=== PATIENT | male | born 1960 | race Caucasian/White ===

== ENCOUNTER → 2019-01-19 | Day surgery (SDC) | payer BC ==
[2019-01-16 14:05] VITALS: BMI 37.7
[~2019-01-19] MED LIST: GLYCOPYRROLATE 0.2 MG/ML 2 ML VIAL ONE; LACTATED RINGERS 1,000 ML IV SCH; LIDOCAINE 1% 20 ML VIAL (10MG/ML) FOR IV START INTRADERMA PRN; LIDOCAINE 1% INJ 10MG/ML (20 ML MDV) ONE; PROPOFOL 10 MG/ML 20 ML VIAL IV ONE
[2019-01-19 07:48] VITALS: TEMP 97.8
[2019-01-19 08:03] LABS: Glucose,Whole Blood 106 mg/dL (75-99)
--- NOTE | 2019-01-19 08:38 | P.GSHP ---
History of Present Illness H&P Date: 01/19/19 Chief Complaint: History of colon polyps This a 58-year-old male who presents today for colonoscopy. Patient has a history of colon polyps. Past Medical History Past Medical History: Atrial Fibrillation, Cancer Additional Past Medical History / Comment(s): hx of atrial fib, hx of mantle cell lymphoma, now in remission, last chemo october 2017, tinnitus History of Any Multi-Drug Resistant Organisms: None Reported Past Surgical History: Hernia Repair, Tonsillectomy Past Anesthesia/Blood Transfusion Reactions: No Reported Reaction Additional Past Anesthesia/Blood Transfusion Reaction / Comment(s): No transfusion history. Smoking Status: Never smoker - Past Family History Mother Family Medical History: Myocardial Infarction ([place]) Additional Family Medical History / Comment(s): Has some arrhythmia, unaware of what. Father History Unknown: Yes Medications and Allergies Home Medications Medication Instructions Recorded Confirmed Type metFORMIN HCL [Glucophage Xr] 500 mg PO BID 01/16/19 01/16/19 History Allergies Allergy/AdvReac Type Severity Reaction Status Date / Time shellfish derived [Shellfish] Allergy Nausea & Verified 01/19/19 07:43 Vomiting Surgical - Exam Vital Signs Temp Pulse Resp BP Pulse Ox 97.8 F 86 16 127/76 96 01/19/19 07:46 01/19/19 07:46 01/19/19 07:46 01/19/19 07:46 01/19/19 07:46 - General well developed, well nourished, no distress - Eyes PERRL - ENT normal pinna - Neck no masses - Respiratory normal expansion - Cardiovascular Rhythm: regular - Abdomen Abdomen: soft, non tender Results - Labs Abnormal Lab Results - Last 24 Hours (Table) 01/19/19 Range/Units 07:56 POC Glucose (mg/dL) 106 H (75-99) mg/dL Assessment and Plan Assessment: History of colon polyps. We'll perform colonoscopy.
--- NOTE | 2019-01-19 08:51 | P.OP ---
Date of Procedure: 01/19/19 Preoperative Diagnosis: History of colon polyps Postoperative Diagnosis: Mild diverticulosis Procedure(s) Performed: Colonoscopy Anesthesia: MAC Surgeon: Willie Vilal Pathology: none sent Condition: stable Disposition: PACU Description of Procedure: The patient's placed on the endoscopy table in the lateral position. He received IV sedation. Digital rectal exam was performed which revealed no abnormalities.. The flexible colonoscope was then placed patient anus and passed throughout the entire colon. The ileocecal valve was visualized. The cecum, ascending and transverse colon appeared normal. In the descending; there is mild diverticular changes. Scope was then brought back the rectum and this appeared normal. Scope was withdrawn for patient.
[2019-01-19 08:59] VITALS: PULSE 76; RESP 17
[2019-01-19 09:19] VITALS: BP 107/70
== END | disposition home or self-care (01) ==
LOC: ORWHC2ENDO 07:30
PROVIDERS: ATTEND Surgery
DX: Z12.11 Encounter for screening for malignant neoplasm of colon (principal); K57.30 Diverticulosis of large intestine without perforation or abscess without bleeding; I48.0 Paroxysmal atrial fibrillation; E11.9 Type 2 diabetes mellitus without complications; Z86.010 Personal history of colon polyps; Z85.79 Personal history of other malignant neoplasms of lymphoid, hematopoietic and related tissues; Z92.21 Personal history of antineoplastic chemotherapy; H93.19 Tinnitus, unspecified ear; Z82.49 Family history of ischemic heart disease and other diseases of the circulatory system; Z79.84 Long term (current) use of oral hypoglycemic drugs; Z91.013 Allergy to seafood
CPT/HCPCS: J2001; J2704; G0105; 45378

== ENCOUNTER → 2019-01-29 | Outpatient (CLI) | payer BC ==
--- NOTE | 2019-01-29 21:31 | MR ---
EXAMINATION TYPE: MR knee LT wo con DATE OF EXAM: 01/29/2019 COMPARISON: None HISTORY: Lt knee pain/clicking TECHNIQUE: Multiplanar, multisequence images of the knee is performed without IV contrast. FINDINGS: MEDIAL MENISCUS: Anterior and posterior horns are intact without tear. LATERAL MENISCUS: Anterior and posterior horns are intact without tear. CRUCIATE LIGAMENTS: The anterior and posterior cruciate ligaments are intact and unremarkable. COLLATERAL LIGAMENTS: The medial collateral ligament and lateral collateral ligament complex are inta ct and unremarkable. EXTENSOR MECHANISM: Visualized quadriceps and patellar tendons are intact. There is some increased si gnal near the insertion of the patellar tendon on the inferior patella. Tear however is not suspected straining could be considered. EFFUSION: No significant suprapatellar joint effusion. POPLITEAL CYST: No popliteal/lee cyst. TRICOMPARTMENT SPACES: There is narrowing of the medial compartment joint space. Milder narrowing of the lateral compartment joint space present. Patellofemoral joint space narrowing is present CARTILAGE: There is thinning of the articular cartilage from the patellofemoral joint space along the femur. Mild thinning of the articular cartilage of the distal femur appears to be present in the med ial and lateral compartments. BONE MARROW SIGNAL: No focal abnormal marrow signal is appreciated. OTHER: No additional significant abnormality is appreciated. No lax ligaments are identified. No chhaya picious osseous spurring is evident. The articular cartilage has some mild osteoarthritic degenerativ e change but otherwise appears intact. IMPRESSION: 1. Mild osteoarthritic degenerative change. 2. Some mild focal strain of the patellar tendon at its insertion on the inferior patella could be co nsidered.
== END | disposition home or self-care (01) ==
LOC: RADMRIMAIN 16:10
PROVIDERS: ATTEND Orthopaedic Surgery
DX: M17.12 Unilateral primary osteoarthritis, left knee (principal); S86.812A Strain of other muscle(s) and tendon(s) at lower leg level, left leg, initial encounter

== ENCOUNTER 2019-06-20 09:54 | Emergency (ER) | payer BC ==
[2019-06-20 10:01] VITALS: TEMP 98.1
[2019-06-20 10:42] LABS: HCT 43.5 % (39.0-53.0); MCH 30.8 pg (25.0-35.0); MCHC 34.5 g/dL (31.0-37.0); MCV 89.2 fL (80.0-100.0); Mean Platelet Volume 6.9; RBC 4.87 m/uL (4.30-5.90); RDW 13.8 % (11.5-15.5); WBC 2.7 k/uL (3.8-10.6)
[2019-06-20 10:44] LABS: ALT 25 U/L (4-49); AST 29 U/L (17-59); African American GFR (CKD) >90 (>60 ml/min/1.73 sqM); Albumin 4.6 g/dL (3.5-5.0); Alkaline Phosphatase 48 U/L (38-126); Anion Gap 12 mmol/L; Blood Urea Nitrogen 14 mg/dL (9-20); Calcium 9.3 mg/dL (8.4-10.2); Carbon Dioxide 19 mmol/L (22-30); Chloride 103 mmol/L (98-107); Glucose 208 mg/dL (74-99); Magnesium 1.7 mg/dL (1.6-2.3); Non-African American GFR(CKD) 79 (>60 ml/min/1.73 sqM); Potassium 4.5 mmol/L (3.5-5.1); Sodium 134 mmol/L (137-145); Total Bilirubin 0.7 mg/dL (0.2-1.3); Total Protein 8.4 g/dL (6.3-8.2)
[2019-06-20 10:48] LABS: D-Dimer 0.36 mg/L FEU (<0.60); Partial Thromboplastin Time 23.6 sec (22.0-30.0); Prothrombin Time 10.2 sec (9.0-12.0)
--- NOTE | 2019-06-20 10:57 | ED ---
General Adult HPI - General Chief complaint: Shortness of Breath Stated complaint: chest pain, SOB Time Seen by Provider: 06/20/19 10:09 Source: patient, family, RN notes reviewed Mode of arrival: ambulatory Limitations: no limitations - History of Present Illness Initial comments: This is a 59-year-old male presents emergency Department chief complaint of chest pain or shortness of breath. Patient states that he's had some shortness breath last name days she states that she is improving at this time but states that has not dissipated. Patient states that shortness breath does get worse with exertion at times. He states that he's had no recent URI symptoms no fevers or chills. No productive cough. Patient states he has left sided chest pain associated with a rash. He states there is a rash on his front and back in the left side. He states it's a burning type pain. Patient denies any abdominal pain, leg swelling, leg pain. Patient has no history of PE or DVT. Patient denies any recent traveling. Patient does have a history of non- Hodgkin's lymphoma in remission. Patient states he does have history of diabetes on metformin currently. Patient does state that he was told he had A. fib at one point though this was just prior to his diagnosis of non-Hodgkin's lymphoma. 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 - Related Data Home Medications Medication Instructions Recorded Confirmed Aspirin EC [Ecotrin Low Dose] 81 mg PO DAILY 06/20/19 06/20/19 Multivitamins, Thera [Multivitamin 1 tab PO DAILY 06/20/19 06/20/19 (formulary)] metFORMIN HCL [Glucophage] 500 mg PO BID 06/20/19 06/20/19 Previous Rx's Medication Instructions Recorded valACYclovir HCL [Valtrex] 1,000 mg PO Q8HR #30 tab 06/20/19 Allergies Allergy/AdvReac Type Severity Reaction Status Date / Time shellfish derived [Shellfish] Allergy Anaphylaxis Verified 06/20/19 11:04 Review of Systems ROS Statement: Those systems with pertinent positive or pertinent negative responses have been documented in the HPI. ROS Other: All systems not noted in ROS Statement are negative. Past Medical History Past Medical History: Cancer Additional Past Medical History / Comment(s): hx of atrial fib, hx of mantle cell lymphoma, now in remission, last chemo october 2017, tinnitus History of Any Multi-Drug Resistant Organisms: None Reported Past Surgical History: Hernia Repair, Tonsillectomy Past Anesthesia/Blood Transfusion Reactions: No Reported Reaction Additional Past Anesthesia/Blood Transfusion Reaction / Comment(s): No transfusion history. Past Psychological History: No Psychological Hx Reported Smoking Status: Current every day smoker Past Alcohol Use History: Rare Past Drug Use History: None Reported - Past Family History Mother Family Medical History: Myocardial Infarction ([place]) Additional Family Medical History / Comment(s): Has some arrhythmia, unaware of what. Father History Unknown: Yes General Exam Limitations: no limitations General appearance: alert, in no apparent distress Head exam: Present: atraumatic, normocephalic, normal inspection Eye exam: Present: normal appearance, PERRL, EOMI. Absent: scleral icterus, conjunctival injection, periorbital swelling ENT exam: Present: normal exam, normal oropharynx, mucous membranes moist Neck exam: Present: normal inspection, full ROM. Absent: tenderness, meningismus, lymphadenopathy Respiratory exam: Present: normal lung sounds bilaterally, chest wall tenderness (Tenderness on the left anterior posterior chest wall there is notable rash is erythematous with vesicles). Absent: respiratory distress, wheezes, rales, rhonchi, stridor, accessory muscle use Cardiovascular Exam: Present: normal rhythm, tachycardia, normal heart sounds. Absent: systolic murmur, diastolic murmur, rubs, gallop, clicks GI/Abdominal exam: Present: soft, normal bowel sounds. Absent: distended, tenderness, guarding, rebound, rigid Course Vital Signs 06/20/19 06/20/19 09:56 11:15 Temperature 98.1 F Pulse Rate 116 H 112 H Respiratory 20 20 Rate Blood Pressure 148/90 O2 Sat by Pulse 97 95 Oximetry EKG Findings - EKG Comments: EKG Findings:: EKG performed at 10:13 sinus tachycardia rate of 1:15 [place] 156 QRS 92 QT/QTC 3:30/456 left axis deviation Medical Decision Making - Medical Decision Making This a 59-year-old male present emergency from for chest pain shortness of b reath. His shortness breath was improving up until today where it seemed to not be improving. Patient reportedly this time does not show an acute abnormality in his chest x-ray he does have some mild acidosis and pharmacy pain in which patient states is chronic. He states from his cancer. Patient is concerned about possible Covid. Patient lab testing. I did recommend patient be admitted for ACS rule out, further evaluation by pulmonology and cardiology patient declines states he understands that there is risk associated with going home at this time. Patient will have Covid testing and discharge. Patient has shingles in which he will be treated with Valtrex at this time. - Lab Data Result diagrams: 06/20/19 10:20 06/20/19 10:20 Lab Results 06/20/19 06/20/19 06/20/19 Range/Units 10:20 10:20 10:20 WBC 2.7 L (3.8-10.6) k/uL RBC 4.87 (4.30-5.90) m/uL Hgb 15.0 (13.0-17.5) gm/dL Hct 43.5 (39.0-53.0) % MCV 89.2 (80.0-100.0) fL MCH 30.8 (25.0-35.0) pg MCHC 34.5 (31.0-37.0) g/dL RDW 13.8 (11.5-15.5) % Plt Count 85 L (150-450) k/uL Neutrophils % (Manual) 57 % Band Neutrophils % 1 % Lymphocytes % (Manual) 25 % Monocytes % (Manual) 17 % Basophils % (Manual) 1 % Metamyelocytes % 1 % Neutrophils # (Manual) 1.50 (1.3-7.7) k/uL Lymphocytes # (Manual) 0.68 L (1.0-4.8) k/uL Monocytes # (Manual) 0.46 (0-1.0) k/uL Basophils # (Manual) 0.03 (0-0.2) k/uL Metamyelocytes # (Man) 0.03 H (0) k/uL Nucleated RBCs 0 (0-0) /100 WBC Manual Slide Review Performed PT 10.2 (9.0-12.0) sec INR 1.0 (<1.2) APTT 23.6 (22.0-30.0) sec D-Dimer 0.36 (<0.60) mg/L FEU Sodium 134 L (137-145) mmol/L Potassium 4.5 (3.5-5.1) mmol/L Chloride 103 (98-107) mmol/L Carbon Dioxide 19 L (22-30) mmol/L Anion Gap 12 mmol/L BUN 14 (9-20) mg/dL Creatinine 1.04 (0.66-1.25) mg/dL Est GFR (CKD-EPI)AfAm >90 (>60 ml/min/1.73 sqM) Est GFR (CKD-EPI)NonAf 79 (>60 ml/min/1.73 sqM) Glucose 208 H (74-99) mg/dL Plasma Lactic Acid Chente (0.7-2.0) mmol/L Calcium 9.3 (8.4-10.2) mg/dL Magnesium 1.7 (1.6-2.3) mg/dL Total Bilirubin 0.7 (0.2-1.3) mg/dL AST 29 (17-59) U/L ALT 25 (4-49) U/L Alkaline Phosphatase 48 (38-126) U/L Troponin I (0.000-0.034) ng/mL NT-Pro-B Natriuret Pep pg/mL Total Protein 8.4 H (6.3-8.2) g/dL Albumin 4.6 (3.5-5.0) g/dL 06/20/19 06/20/19 06/20/19 Range/Units 10:20 10:20 10:20 WBC (3.8-10.6) k/uL RBC (4.30-5.90) m/uL Hgb (13.0-17.5) gm/dL Hct (39.0-53.0) % MCV (80.0-100.0) fL MCH (25.0-35.0) pg MCHC (31.0-37.0) g/dL RDW (11.5-15.5) % Plt Count (150-450) k/uL Neutrophils % (Manual) % Band Neutrophils % % Lymphocytes % (Manual) % Monocytes % (Manual) % Basophils % (Manual) % Metamyelocytes % % Neutrophils # (Manual) (1.3-7.7) k/uL Lymphocytes # (Manual) (1.0-4.8) k/uL Monocytes # (Manual) (0-1.0) k/uL Basophils # (Manual) (0-0.2) k/uL Metamyelocytes # (Man) (0) k/uL Nucleated RBCs (0-0) /100 WBC Manual Slide Review PT (9.0-12.0) sec INR (<1.2) APTT (22.0-30.0) sec D-Dimer (<0.60) mg/L FEU Sodium (137-145) mmol/L Potassium (3.5-5.1) mmol/L Chloride (98-107) mmol/L Carbon Dioxide (22-30) mmol/L Anion Gap mmol/L BUN (9-20) mg/dL Creatinine (0.66-1.25) mg/dL Est GFR (CKD-EPI)AfAm (>60 ml/min/1.73 sqM) Est GFR (CKD-EPI)NonAf (>60 ml/min/1.73 sqM) Glucose (74-99) mg/dL Plasma Lactic Acid Chente 2.1 H* (0.7-2.0) mmol/L Calcium (8.4-10.2) mg/dL Magnesium (1.6-2.3) mg/dL Total Bilirubin (0.2-1.3) mg/dL AST (17-59) U/L ALT (4-49) U/L Alkaline Phosphatase (38-126) U/L Troponin I <0.012 (0.000-0.034) ng/mL NT-Pro-B Natriuret Pep 36 pg/mL Total Protein (6.3-8.2) g/dL Albumin (3.5-5.0) g/dL Disposition Clinical Impression: Exertional dyspnea, Shingles Disposition: HOME SELF-CARE Condition: Stable Instructions (If sedation given, give patient instructions): Shingles (ED) Additional Instructions: Please return to the Emergency Department if symptoms worsen or any other concerns. Prescriptions: valACYclovir HCL [Valtrex] 1,000 mg PO Q8HR #30 tab Is patient prescribed a controlled substance at d/c from ED?: No Referrals: Pablo Chester DO [Primary Care Provider] - 1-2 days Niranjan Andrews DO [Doctor of Osteopathic Medicine] - 1-2 days Jatin Flores MD [STAFF PHYSICIAN] - 1-2 days Time of Disposition: 11:38
--- NOTE | 2019-06-20 10:59 | XR ---
EXAMINATION TYPE: XR chest 2V DATE OF EXAM: 06/20/2019 COMPARISON: 02/24/2015 INDICATION: Difficulty breathing cough short of breath history of lymphoma TECHNIQUE: Frontal and lateral views of the chest are obtained. FINDINGS: The heart size is normal. The pulmonary vasculature is normal. No suspicious consolidations are evident. Port is present on the left with the tip in the superior ve na cava region. No pneumothorax is evident. Aortopulmonic window appears normal. Spondylosis within t he thoracic spine. IMPRESSION: 1. No acute pulmonary process. 2. Placement of a port on the left with the tip in the superior vena cava region. No pneumothorax is evident.
[2019-06-20 11:09] LABS: Metamyelocytes # (M) 0.03 k/uL (0); Metamyelocytes % 1 %; Nucleated Red Blood Cells 0 /100 WBC (0-0)
[2019-06-20 11:11] LABS: Band Neutrophils % 1 %; Basophils # (M) 0.03 k/uL (0-0.2); Lymphocytes # (M) 0.68 k/uL (1.0-4.8); Monocytes # (M) 0.46 k/uL (0-1.0); Neutrophils % (M) 57 %; Platelet Count 85 k/uL (150-450); Total Cells Counted 200
[2019-06-20 11:55] VITALS: BP 125/69; PULSE 110; RESP 18
== END 2019-06-20 12:11 | disposition home or self-care (01) ==
LOC: EC 09:54
DX: R06.09 Other forms of dyspnea (principal); B02.9 Zoster without complications; E87.2 Acidosis; R07.9 Chest pain, unspecified; F17.200 Nicotine dependence, unspecified, uncomplicated; Z85.72 Personal history of non-Hodgkin lymphomas; Z92.21 Personal history of antineoplastic chemotherapy; Z86.79 Personal history of other diseases of the circulatory system; Z79.82 Long term (current) use of aspirin; Z79.84 Long term (current) use of oral hypoglycemic drugs; Z91.013 Allergy to seafood; Z82.49 Family history of ischemic heart disease and other diseases of the circulatory system
CPT/HCPCS: 36415; 71046; 80053; 83605; 83735; 83880; 84484; 85025; 85379; 85610; 85730; 87635; 93005; 99285

== ENCOUNTER → 2020-01-22 | Outpatient (CLI) | payer BC | END | disposition home or self-care (01) | LOC: LABWHC1 12:06 | PROVIDERS: ATTEND Family Medicine | DX: Z20.828 Contact with and (suspected) exposure to other viral communicable diseases (principal) | CPT/HCPCS: U0003; C9803 ==

== ENCOUNTER 2020-01-27 12:39 | Inpatient (IN) | payer BC ==
[2020-01-27] MEDS ORDERED: dexAMETHasone 2 MG TAB PO STA (13:08)
--- NOTE | 2020-01-27 13:21 | ED ---
General Adult HPI - General Chief complaint: Shortness of Breath Stated complaint: SOB Time Seen by Provider: 01/27/20 12:45 Source: patient, RN notes reviewed, old records reviewed Mode of arrival: wheelchair Limitations: no limitations - History of Present Illness Initial comments: This is a 59-year-old male who presents emergency Department complaining of feeling a little short of breath. Patient states he went to see his primary medical care doctor started on antibiotics and steroids. Patient states shortness of breath is gotten worse so he decided come the emergency department. Patient states she was COVID tested but did not get results however while he was in the room I looked up his results and he was positive. Patient denies any fever. Patient denies chest pain or palpitations. Patient denies any diarrhea or or vomiting. Patient denies any headache patient denies any numbness or weakness. - Related Data Home Medications Medication Instructions Recorded Confirmed Aspirin EC [Ecotrin Low Dose] 81 mg PO DAILY 06/20/19 06/20/19 Multivitamins, Thera [Multivitamin 1 tab PO DAILY 06/20/19 06/20/19 (formulary)] metFORMIN HCL [Glucophage] 500 mg PO BID 06/20/19 06/20/19 Previous Rx's Medication Instructions Recorded valACYclovir HCL [Valtrex] 1,000 mg PO Q8HR #30 tab 06/20/19 Allergies Allergy/AdvReac Type Severity Reaction Status Date / Time shellfish derived [Shellfish] Allergy Anaphylaxis Verified 01/27/20 12:45 Review of Systems ROS Statement: Those systems with pertinent positive or pertinent negative responses have been documented in the HPI. ROS Other: All systems not noted in ROS Statement are negative. Past Medical History Past Medical History: Cancer Additional Past Medical History / Comment(s): hx of atrial fib, hx of mantle cell lymphoma, now in remission, tinnitus History of Any Multi-Drug Resistant Organisms: None Reported Past Surgical History: Hernia Repair, Tonsillectomy Past Anesthesia/Blood Transfusion Reactions: No Reported Reaction Additional Past Anesthesia/Blood Transfusion Reaction / Comment(s): No transfusion history. Past Psychological History: No Psychological Hx Reported Past Alcohol Use History: Rare Past Drug Use History: None Reported - Past Family History Mother Family Medical History: Myocardial Infarction ([place]) Additional Family Medical History / Comment(s): Has some arrhythmia, unaware of what. Father History Unknown: Yes General Exam - General Exam Comments Initial Comments: GENERAL: Patient is well-developed and well-nourished. Patient is nontoxic and well-hydrated and is in mild distress. ENT: Neck is soft and supple. No significant lymphadenopathy is noted. Oropharynx is clear. Moist mucous membranes. Neck has full range of motion without eliciting any pain. EYES: The sclera were anicteric and conjunctiva were pink and moist. Extraocular movements were intact and pupils were equal round and reactive to light. Eyelids were unremarkable. PULMONARY: Unlabored respirations. Good breath sounds bilaterally. No audible rales rhonchi or wheezing was noted. CARDIOVASCULAR: There is a regular rate and rhythm without any murmurs gallops or rubs. ABDOMEN: Soft and nontender with normal bowel sounds. SKIN: Skin is clear with no lesions or rashes and otherwise unremarkable. NEUROLOGIC: Patient is alert and oriented x3. Cranial nerves II through XII are grossly intact. Motor and sensory are also intact. Normal speech, volume and content. Symmetrical smile. MUSCULOSKELETAL: Normal extremities with adequate strength and full range of motion. LYMPHATICS: No significant lymphadenopathy is noted PSYCHIATRIC: Normal psychiatric evaluation. Limitations: no limitations Course Vital Signs 01/27/20 12:43 Temperature 98.5 F Pulse Rate 95 Respiratory 18 Rate Blood Pressure 107/70 O2 Sat by Pulse 92 L Oximetry Medical Decision Making - Medical Decision Making EKG shows normal sinus rhythm at 80 bpm TX interval is 138 QRS is 90 QT interval 380 QTC is 459. EKG shows no ST segment elevation or depression. X-ray shows bilateral pneumonia consistent with COVID. I spoke with Dr. Cano he agreed to admit the patient admitted the patient I consult pulmonary in the wrote admitting orders. - Lab Data Result diagrams: 01/27/20 13:21 01/27/20 13:21 Lab Results 01/27/20 01/27/20 01/27/20 Range/Units 13:21 13:21 13:21 WBC 3.9 (3.8-10.6) k/uL RBC 4.64 (4.30-5.90) m/uL Hgb 14.4 (13.0-17.5) gm/dL Hct 40.6 (39.0-53.0) % MCV 87.5 (80.0-100.0) fL MCH 30.9 (25.0-35.0) pg MCHC 35.3 (31.0-37.0) g/dL RDW 13.4 (11.5-15.5) % Plt Count 143 L (150-450) k/uL MPV 6.8 Neutrophils % 85 % Lymphocytes % 7 % Monocytes % 6 % Eosinophils % 1 % Basophils % 1 % Neutrophils # 3.3 (1.3-7.7) k/uL Lymphocytes # 0.3 L (1.0-4.8) k/uL Monocytes # 0.2 (0-1.0) k/uL Eosinophils # 0.0 (0-0.7) k/uL Basophils # 0.0 (0-0.2) k/uL PT 10.6 (9.0-12.0) sec INR 1.0 (<1.2) APTT 24.1 (22.0-30.0) sec D-Dimer 0.46 (<0.60) mg/L FEU Sodium 133 L (137-145) mmol/L Potassium 4.4 (3.5-5.1) mmol/L Chloride 102 (98-107) mmol/L Carbon Dioxide 22 (22-30) mmol/L Anion Gap 9 mmol/L BUN 15 (9-20) mg/dL Creatinine 0.81 (0.66-1.25) mg/dL Est GFR (CKD-EPI)AfAm >90 (>60 ml/min/1.73 sqM) Est GFR (CKD-EPI)NonAf >90 (>60 ml/min/1.73 sqM) Glucose 111 H (74-99) mg/dL Plasma Lactic Acid Chente (0.7-2.0) mmol/L Calcium 9.0 (8.4-10.2) mg/dL Magnesium 1.9 (1.6-2.3) mg/dL Total Bilirubin 0.9 (0.2-1.3) mg/dL AST 44 (17-59) U/L ALT 36 (4-49) U/L Alkaline Phosphatase 57 (38-126) U/L Lactate Dehydrogenase 919 H (313-618) U/L C-Reactive Protein 76.5 H (<10.0) mg/L Total Protein 7.8 (6.3-8.2) g/dL Albumin 3.5 (3.5-5.0) g/dL Influenza Type A RNA (Not Detectd) Influenza Type B (PCR) (Not Detectd) 01/27/20 01/27/20 Range/Units 13:21 13:21 WBC (3.8-10.6) k/uL RBC (4.30-5.90) m/uL Hgb (13.0-17.5) gm/dL Hct (39.0-53.0) % MCV (80.0-100.0) fL MCH (25.0-35.0) pg MCHC (31.0-37.0) g/dL RDW (11.5-15.5) % Plt Count (150-450) k/uL MPV Neutrophils % % Lymphocytes % % Monocytes % % Eosinophils % % Basophils % % Neutrophils # (1.3-7.7) k/uL Lymphocytes # (1.0-4.8) k/uL Monocytes # (0-1.0) k/uL Eosinophils # (0-0.7) k/uL Basophils # (0-0.2) k/uL PT (9.0-12.0) sec INR (<1.2) APTT (22.0-30.0) sec D-Dimer (<0.60) mg/L FEU Sodium (137-145) mmol/L Potassium (3.5-5.1) mmol/L Chloride (98-107) mmol/L Carbon Dioxide (22-30) mmol/L Anion Gap mmol/L BUN (9-20) mg/dL Creatinine (0.66-1.25) mg/dL Est GFR (CKD-EPI)AfAm (>60 ml/min/1.73 sqM) Est GFR (CKD-EPI)NonAf (>60 ml/min/1.73 sqM) Glucose (74-99) mg/dL Plasma Lactic Acid Chente 1.5 (0.7-2.0) mmol/L Calcium (8.4-10.2) mg/dL Magnesium (1.6-2.3) mg/dL Total Bilirubin (0.2-1.3) mg/dL AST (17-59) U/L ALT (4-49) U/L Alkaline Phosphatase (38-126) U/L Lactate Dehydrogenase (313-618) U/L C-Reactive Protein (<10.0) mg/L Total Protein (6.3-8.2) g/dL Albumin (3.5-5.0) g/dL Influenza Type A RNA Not Detected (Not Detectd) Influenza Type B (PCR) Not Detected (Not Detectd) Disposition Clinical Impression: Pneumonia due to COVID-19 virus Disposition: ADMITTED IP TO THIS HOSP Referrals: Pablo Chester DO [Primary Care Provider] - 1-2 days Time of Disposition: 14:38
[2020-01-27 13:31] LABS: Basophils % (A) 1 %; Eosinophils % (A) 1 %; HCT 40.6 % (39.0-53.0); HGB 14.4 gm/dL (13.0-17.5); Lymphocytes # (A) 0.3 k/uL (1.0-4.8); Lymphocytes % (A) 7 %; MCH 30.9 pg (25.0-35.0); MCHC 35.3 g/dL (31.0-37.0); MCV 87.5 fL (80.0-100.0); Mean Platelet Volume 6.8; Monocytes # (A) 0.2 k/uL (0-1.0); Monocytes % (A) 6 %; Neutrophils # (A) 3.3 k/uL (1.3-7.7); Neutrophils % (A) 85 %; Platelet Count 143 k/uL (150-450); RBC 4.64 m/uL (4.30-5.90); RDW 13.4 % (11.5-15.5); WBC 3.9 k/uL (3.8-10.6)
[2020-01-27 13:44] LABS: ALT 36 U/L (4-49); AST 44 U/L (17-59); African American GFR (CKD) >90 (>60 ml/min/1.73 sqM); Albumin 3.5 g/dL (3.5-5.0); Alkaline Phosphatase 57 U/L (38-126); Anion Gap 9 mmol/L; Blood Urea Nitrogen 15 mg/dL (9-20); C Reactive Protein 76.5 mg/L (<10.0); Carbon Dioxide 22 mmol/L (22-30); Chloride 102 mmol/L (98-107); Glucose 111 mg/dL (74-99); LDH 919 U/L (313-618); Magnesium 1.9 mg/dL (1.6-2.3); Non-African American GFR(CKD) >90 (>60 ml/min/1.73 sqM); Potassium 4.4 mmol/L (3.5-5.1); Sodium 133 mmol/L (137-145); Total Bilirubin 0.9 mg/dL (0.2-1.3); Total Protein 7.8 g/dL (6.3-8.2)
[2020-01-27 13:49] LABS: D-Dimer 0.46 mg/L FEU (<0.60); Partial Thromboplastin Time 24.1 sec (22.0-30.0); Prothrombin Time 10.6 sec (9.0-12.0)
--- NOTE | 2020-01-27 13:56 | XR ---
EXAMINATION TYPE: XR chest 1V portable DATE OF EXAM: 01/27/2020 COMPARISON: 06/20/2019. HISTORY: Shortness of breath. TECHNIQUE: Single frontal view of the chest is obtained. FINDINGS: There is moderate perihilar and bibasilar patchy opacities. No pleural effusion, or pneumo thorax seen. Left IJ port catheter is seen. The cardiac silhouette size is within normal limits. Th e osseous structures are intact. IMPRESSION: Bilateral infiltrates.
--- NOTE | 2020-01-27 18:17 | P.CNPUL ---
History of Present Illness Consult date: 01/27/20 Reason for consult: dyspnea, pneumonia History of present illness: This is a 59-year-old male patient was currently being hospitalized for shortn ess of breath and suspected pneumonia.. The patient has history of mental cell lymphoma. The patient has an out of town oncologist. He has been taken treatment with Rituxan and Revlimid as the patient has had recurrent disease. The patient came into the emergency department having difficulty breathing. He was tested for coronavirus COVID 19 infection on 01/22/2020 and he checked positive.. The patient came in to the hospital because of worsening symptoms of shortness of breath and cough. Denied having any headache. No nausea. No vomiting. No diarrhea. In the ED, the patient was afebrile. He was on 2 L of oxygen by nasal cannula with a pulse of 95%. The rest of the hemodynamic pa rameters were all stable. He had a white cell count of 3.9 with hemoglobin of 14.3. Platelet count was low at 143 and the patient and lymphopenia with a lymphocyte count of 0.3. Correlation profile was within normal. D-dimer was normal at 0.46. His LDH was 919, CRP was 76, sodium was 133, potassium was 4.4, influenza screen for influenza A and B were both negative. Bilateral pulmonary infiltrates mainly perihilar. No effusion. He doesn't report regarding his underlying malignancy Review of Systems Constitutional: Reports fatigue Eyes: denies as per HPI, denies blurred vision, denies bulging eye, denies decreased vision, denies diplopia, denies discharge, denies dry eye, denies irritation, denies itching, denies pain, denies photophobia, denies loss of peripheral vision, denies loss of vision, denies tunnel vision/blind spots Ears: deny: decreased hearing, ear discharge, earache, tinnitus Ears, nose, mouth and throat: Reports as per HPI Breasts: absent: as per HPI, gynecomastia Cardiovascular: Reports as per HPI, Reports dyspnea on exertion Respiratory: Reports cough, Reports dyspnea Gastrointestinal: Reports as per HPI Genitourinary: Reports as per HPI Musculoskeletal: Reports as per HPI Musculoskeletal: absent: ankle pain, ankle stiffness, ankle swelling Integumentary: Reports as per HPI Neurological: Reports as per HPI Psychiatric: Reports as per HPI Endocrine: Reports as per HPI Hematologic/Lymphatic: Reports as per HPI Allergic/Immunologic: Reports as per HPI Past Medical History Past Medical History: Cancer Additional Past Medical History / Comment(s): hx of atrial fib, hx of mantle cell lymphoma, and currently patient is currently on Revlimid, tinnitus History of Any Multi-Drug Resistant Organisms: None Reported Past Surgical History: Hernia Repair, Tonsillectomy Past Anesthesia/Blood Transfusion Reactions: No Reported Reaction Additional Past Anesthesia/Blood Transfusion Reaction / Comment(s): No transfusion history. Past Psychological History: No Psychological Hx Reported Past Alcohol Use History: Rare Past Drug Use History: None Reported - Past Family History Mother Family Medical History: Myocardial Infarction ([place]) Additional Family Medical History / Comment(s): Has some arrhythmia, unaware of what. Father History Unknown: Yes Medications and Allergies Home Medications Medication Instructions Recorded Confirmed Type metFORMIN HCL [Glucophage] 500 mg PO BID 06/20/19 01/27/20 History Acyclovir 400 mg PO BID 01/27/20 01/27/20 History Lenalidomide [Revlimid] 25 mg PO DIRECTED 01/27/20 01/27/20 History Tamsulosin [Flomax] 0.4 mg PO DAILY 01/27/20 01/27/20 History predniSONE See Taper PO DAILY 01/27/20 01/27/20 History Allergies Allergy/AdvReac Type Severity Reaction Status Date / Time shellfish derived [Shellfish] Allergy Anaphylaxis Verified 01/27/20 15:26 Physical Exam Vitals: Vital Signs Temp Pulse Resp BP Pulse Ox 01/27/20 16:00 75 20 115/75 95 01/27/20 15:45 74 20 127/79 95 01/27/20 14:45 79 20 122/80 95 01/27/20 13:45 74 20 124/82 95 01/27/20 12:43 98.5 F 95 18 107/70 92 L Intake and Output 01/27/20 01/27/20 01/27/20 06:59 14:59 22:59 Other: Weight 115.666 kg The patient appeared well nourished and normally developed. Vital signs as documented. Head exam is unremarkable. No scleral icterus or corneal arcus noted. Neck is without jugular venous distension, thyromegaly, or carotid bruits. Carotid upstrokes are brisk bilaterally. Lungs are clear to auscultation and percussion. Cardiac exam reveals the PMI to be normally sized and situated. Rhythm is regular. First and second heart sounds normal. No murmurs, rubs or gallops. Abdominal exam reveals normal bowel sounds, no masses, no organomegaly and no aortic enlargement. Extremities are nonedematous and both femoral and pedal pulses are normal.Examination of the skin revealed no evidence of significant rashes, suspicious appearing nevi or other concerning lesions. The patient has a MediPort over the left anterior chest area and exit site is dry clean and intact.Neurologically, the patient is awake and alert and the patient does not have any focal neurological deficit. Cranial nerves are essentially intact. Results - Laboratory Findings CBC and BMP: 01/27/20 13:21 01/27/20 13:21 PT/INR, D-dimer PT 10.6 sec (9.0-12.0) 01/27/20 13:21 INR 1.0 (<1.2) 01/27/20 13:21 D-Dimer 0.46 mg/L FEU (<0.60) 01/27/20 13:21 Abnormal lab findings: Abnormal Labs 01/27/20 01/27/20 13:21 13:21 Plt Count 143 L Lymphocytes # 0.3 L Sodium 133 L Glucose 111 H Lactate Dehydrogenase 919 H C-Reactive Protein 76.5 H - Diagnostic Findings Chest x-ray: image reviewed Assessment and Plan Plan: 1 acute Covid 19 infection with secondary constitutional symptoms and shortness of breath with early signs of pneumonia with limited perihilar bilateral infiltrates 2 shortness of breath secondary to above 3 acute hypoxic respiratory failure secondary to above currently on 2 L about 2 by nasal cannula 4 history of lymphoma currently undergoing treatment with Revlimid 5 history of paroxysmal atrial fibrillation 6 BPH maintained on Flomax Plan Admit this patient to the hospital for monitoring monitor the oxygenation put the patient on oral Decadron 6 mg by mouth daily Initiate Remdesivir , as the patient reports progressive worsening shortness of breath and he has developed some degree of hypoxemia along with bilateral pulmonary infiltrates consistent with Covid 19 related pneumonia. IV hydration Lovenox for prophylaxis We'll continue to follow
[2020-01-27] MEDS: ENOXAPARIN 40 MG/0.4 ML SYRINGE SQ SCH (18:33)
[2020-01-27] MEDS: ASCORBIC ACID 500 MG TAB PO SCH (18:33)
[2020-01-27] MEDS: CHOLECALCIFEROL 1,000 UNIT TAB PO SCH (18:33)
[2020-01-27] MEDS: ZINC SULFATE 220 MG CAP PO SCH (18:53)
[2020-01-27] MEDS ORDERED: REMDESIVIR (EUA) 200 MG in SODIUM CHLORIDE 0.9% 250 ML IVPB ONE (19:30)
[2020-01-27] MEDS: MELATONIN 5 MG TABLET PO SCH (20:25)
[2020-01-27] MEDS: FAMOTIDINE 20 MG TAB PO SCH (20:32)
--- NOTE | 2020-01-27 20:42 | P.HPIM ---
History of Present Illness H&P Date: 01/27/20 Patient is a 59-year-old male with a known history of mantle cell lymphoma currently in remission and on follow-up with his oncologist presents to ER with complaints of shortness of breath, cough without sputum production generalized weakness and myalgias which has been worsening since last Tuesday. Patient was tested for COVID-19 couple days ago but did not get his report yet. Patient presents to ER due to worsening symptoms. Denied any loss of taste. No nausea vomiting or diarrhea. On admission patient was saturating at 92% on room air and was afebrile. Chest x-ray showed bilateral infiltrates. EKG showed normal sinus rhythm. Laboratory data showed WBC 3.9, hemoglobin 14.4, D-dimer is not elevated 0.46 LDH is 919 and CRP seven 6.5 and influenza PCR negative. Review of Systems Constitutional: patient does have subjective fevers, generalized weakness and fatigue. And myalgias.. Abdomen: Patient denied nausea vomiting and diarrhea and abdominal pain. Cardiovascular: Patient denies any chest pain .no palpitations. Respiratory: Patient does have cough without sputum production and shortness of breath.h Neurologic: Patient denied any numbness or tingling headache. Musculoskeletal: Patient denies any complaints of joint swelling or deformity. Skin: Negative Psychiatric: Negative Endocrine: No heat or cold intolerance. No recent weight gain. Genitourinary: No dysuria or hematuria. All other 14 point ROS negative except the above Past Medical History Past Medical History: Cancer Additional Past Medical History / Comment(s): hx of atrial fib, hx of mantle cell lymphoma, now in remission, tinnitus History of Any Multi-Drug Resistant Organisms: None Reported Past Surgical History: Hernia Repair, Tonsillectomy Past Anesthesia/Blood Transfusion Reactions: No Reported Reaction Additional Past Anesthesia/Blood Transfusion Reaction / Comment(s): No transfu breana history. Past Psychological History: No Psychological Hx Reported Past Alcohol Use History: Rare Past Drug Use History: None Reported - Past Family History Mother Family Medical History: Myocardial Infarction ([place]) Additional Family Medical History / Comment(s): Has some arrhythmia, unaware of what. Father History Unknown: Yes Medications and Allergies Home Medications Medication Instructions Recorded Confirmed Type metFORMIN HCL [Glucophage] 500 mg PO BID 06/20/19 01/27/20 History Acyclovir 400 mg PO BID 01/27/20 01/27/20 History Lenalidomide [Revlimid] 25 mg PO DIRECTED 01/27/20 01/27/20 History Tamsulosin [Flomax] 0.4 mg PO DAILY 01/27/20 01/27/20 History predniSONE See Taper PO DAILY 01/27/20 01/27/20 History Allergies Allergy/AdvReac Type Severity Reaction Status Date / Time shellfish derived [Shellfish] Allergy Anaphylaxis Verified 01/27/20 15:26 Physical Exam Vitals: Vital Signs Temp Pulse Resp BP Pulse Ox 01/27/20 16:00 75 20 115/75 95 01/27/20 15:45 74 20 127/79 95 01/27/20 14:45 79 20 122/80 95 01/27/20 13:45 74 20 124/82 95 01/27/20 12:43 98.5 F 95 18 107/70 92 L Intake and Output 01/27/20 01/27/20 01/27/20 06:59 14:59 22:59 Other: Weight 115.666 kg PHYSICAL EXAMINATION: Patient is lying in the bed comfortably, no acute distress, awake alert and oriented.. HEENT: Normocephalic. Neck is supple. Pupils reactive. Nostrils clear. Oral cavity is moist. Ears reveal no drainage. Neck reveals no JVD, carotid bruits, or thyromegaly. CHEST EXAMINATION: Trachea is central. Symmetrical expansion. Lung culp clear to auscultation and percussion. CARDIAC: Normal S1, S2 with no gallops. No murmurs ABDOMEN: Soft. Bowel sounds normal. No organomegaly. No abdominal bruits. Extremities: reveal no edema. No clubbing or cyanosis Neurologically awake, alert, oriented x3 with well-coordinated movements. No focal deficits noted Skin: No rash or skin lesions. Psychiatric: Coperative. Nonsuicidal Musculoskeletal: No joint swelling or deformity. Normal range of motion. Results CBC & Chem 7: 01/27/20 13:21 01/27/20 13:21 Labs: Abnormal Lab Results - Last 24 Hours (Table) 01/27/20 01/27/20 Range/Units 13:21 13:21 Plt Count 143 L (150-450) k/uL Lymphocytes # 0.3 L (1.0-4.8) k/uL Sodium 133 L (137-145) mmol/L Glucose 111 H (74-99) mg/dL Lactate Dehydrogenase 919 H (313-618) U/L C-Reactive Protein 76.5 H (<10.0) mg/L Thrombosis Risk Factor Assmnt - DVT/VTE Prophylaxis DVT/VTE Prophylaxis: Pharmacologic Prophylaxis ordered Assessment and Plan Assessment: Acute COVID-19 infection with bilateral pneumonia. Acute hypoxic respiratory failure secondary to COVID-19 infection Mantle cell lymphoma currently in remission. On follow-up with his oncologist. History of atrial fibrillation Diabetes type 2 [id number] History of tinnitus DVT prophylaxis and GI prophylaxis Plan: Patient will continue gentle IV hydration. Continue with oxygen therapy and will start on dexamethasone and Lovenox. Pulmonary was consulted. Patient will benefit from remdesivir therapy. Continue to monitor closely and contact and droplet precautions. Further recommendations based on the clinical course.w Time with Patient: Greater than 30
[2020-01-27 21:37] LABS: Glucose,Whole Blood 117 mg/dL (75-99)
[2020-01-27 23:04] LABS: Ferritin 299.7 ng/mL (22.0-322.0)
[2020-01-28 07:33] LABS: Glucose,Whole Blood 89 mg/dL (75-99)
[2020-01-28] MEDS: ASCORBIC ACID 500 MG TAB PO SCH (08:31)
[2020-01-28] MEDS: FAMOTIDINE 20 MG TAB PO SCH ×2 (08:32→20:43)
[2020-01-28] MEDS: ZINC SULFATE 220 MG CAP PO SCH (08:32)
[2020-01-28] MEDS: CHOLECALCIFEROL 1,000 UNIT TAB PO SCH (08:32)
[2020-01-28] MEDS: dexAMETHasone 2 MG TAB PO SCH (08:32)
--- NOTE | 2020-01-28 10:53 | P.PN ---
Subjective Progress Note Date: 01/28/20 This is a 59-year-old gentleman admitted with acute COVID-19 pneumonia, acute hypoxic respiratory failure multiple other medical issues. Maintained on Decadron, Remdisiv, IV fluid hydration, Lovenox. Oxygen requirements worsened, up to 4 L nasal cannula required to maintain O2 sats in the high 90s. Dry nonproductive cough. Denies chest pain, palpitations. Afebrile. Blood sugars controlled. Objective - Vital Signs Vital signs: Vital Signs Temp 98.2 F 01/28/20 06:34 Pulse 83 01/28/20 06:34 Resp 20 01/28/20 06:34 BP 113/71 01/28/20 06:34 Pulse Ox 91 L 01/28/20 06:34 Intake & Output 01/27/20 01/28/20 01/28/20 18:59 06:59 18:59 Intake Total 250 Balance 250 Weight 115.666 kg 116 kg Intake: Intake, IV Titration 250 Amount Remdesivir (Eua) 200 mg 250 In Sodium Chloride 0.9% 250 ml @ 250 mls/hr IVPB ONCE ONE Rx#:[id number] Other: Voiding Method Toilet # Voids 2 - Exam PHYSICAL EXAM: VITAL SIGNS: [As above] GENERAL: Sitting up in bed, no acute distress, converses without shortness of breath. HEENT: Conjunctivae normal. eyes normal. NECK: No JVD. No thyroid enlargement. No LNs CARDIOVASCULAR: S1, S2 regular.No murmur RESPIRATION: Breath sounds diminished in the bases. Scattered rhonchi , no crackles. No wheezing. ABDOMEN: Soft, nontender . No guarding. no masses palpable. Positive Bowel sounds heard. LEGS: No edema. no swelling. PSYCHIATRY: Alert and oriented X3, mood and affect normal. NERVOUS SYSTEM: Cranial N 2-12 grossly normal. Moves all 4 limbs. No focal deficits. Strength and sensation grossly intact. Skin: Warm and dry, no rash - Labs CBC & Chem 7: 01/27/20 13:21 01/27/20 13:21 Labs: Abnormal Lab Results - Last 24 Hours (Table) 01/27/20 01/27/20 01/27/20 Range/Units 13:21 13:21 21:35 Plt Count 143 L (150-450) k/uL Lymphocytes # 0.3 L (1.0-4.8) k/uL Sodium 133 L (137-145) mmol/L Glucose 111 H (74-99) mg/dL POC Glucose (mg/dL) 117 H (75-99) mg/dL Lactate Dehydrogenase 919 H (313-618) U/L C-Reactive Protein 76.5 H (<10.0) mg/L Assessment and Plan Assessment: Acute COVID-19 infection with bilateral pneumonia Acute hypoxic respiratory failure secondary to the above Diabetes mellitus type 2 Chronic proximal atrial fibrillation History of lymphoma BPH Plan: Continue on current medication regime ,monitoring and symptomatic treatment. Continue on DVT prophylaxis with Lovenox. Maintain Remdesivir, Decadron. Close monitoring of inflammatory markers. Follow closely with pulmonary. The impression and plan of care has been dictated as directed. : I performed a history and examination of this patient, discussed the same with the dictator. I agree with the dictator's note ,documented as a scribe. Any additional findings or plans will be noted.
[2020-01-28 11:46] LABS: Glucose,Whole Blood 104 mg/dL (75-99)
[2020-01-28] MEDS: INSULIN ASPART (NovoLOG) 100 UNIT/ML VIAL SQ SCH ×3 (13:51→21:08)
[2020-01-28] MEDS: TAMSULOSIN 0.4 MG CAP.ER.24H PO SCH (13:57)
--- NOTE | 2020-01-28 14:03 | P.PN ---
Subjective Progress Note Date: 01/28/20 Principal diagnosis: Acute: 19 infection with secondary constitutional symptoms and early signs of pneumonia with limited perihilar bilateral infiltrates. This is a 59-year-old male patient was currently being hospitalized for shortness of breath and suspected pneumonia.. The patient has history of mental cell lymphoma. The patient has an out of town oncologist. He has been taken treatment with Rituxan and Revlimid as the patient has had recurrent disease. The patient came into the emergency department having difficulty breathing. He was tested for coronavirus COVID 19 infection on 01/22/2020 and he checked positive.. The patient came in to the hospital because of worsening symptoms of shortness of breath and cough. Denied having any headache. No nausea. No vo miting. No diarrhea. In the ED, the patient was afebrile. He was on 2 L of oxygen by nasal cannula with a pulse of 95%. The rest of the hemodynamic parameters were all stable. He had a white cell count of 3.9 with hemoglobin of 14.3. Platelet count was low at 143 and the patient and lymphopenia with a lymphocyte count of 0.3. Correlation profile was within normal. D-dimer was normal at 0.46. His LDH was 919, CRP was 76, sodium was 133, potassium was 4.4, influenza screen for influenza A and B were both negative. Bilateral pulmonary infiltrates mainly perihilar. No effusion. He doesn't report regarding his underlying malignancy On 01/28/2020 patient seen in follow-up on medical surgical floor. Patient is calm and comfortable, he is on 3 L of oxygen his pulse ox is 95%, still has some cough, and exertional dyspnea, but no acute distress, he continues on Remdesivir, Decadron, and Lovenox at prophylactic doses, his had no fever or chills, vital signs have been stable, no new chest x-ray, no acute events overnight. Her chest discomfort, no palpitations Objective - Vital Signs Vital signs: Vital Signs Temp 98.0 F 01/28/20 12:32 Pulse 78 01/28/20 12:32 Resp 20 01/28/20 06:34 BP 123/78 01/28/20 12:32 Pulse Ox 95 01/28/20 12:32 Intake & Output 01/27/20 01/28/20 01/28/20 18:59 06:59 18:59 Intake Total 250 Balance 250 Weight 115.666 kg 116 kg Intake: Intake, IV Titration 250 Amount Remdesivir (Eua) 200 mg 250 In Sodium Chloride 0.9% 250 ml @ 250 mls/hr IVPB ONCE ONE Rx#:[id number] Other: Voiding Method Toilet # Voids 2 - Exam GENERAL EXAM: Alert, active, 59-year-old white male, 3 L of oxygen the pulse ox 95% comfortable in no apparent distress. HEAD: Normocephalic/atraumatic. EYES: Normal reaction of pupils, equal size. Conjunctiva pink, sclera white. NOSE: Clear with pink turbinates. THROAT: No erythema or exudates. NECK: No masses, no JVD, no thyroid enlargement, no adenopathy. CHEST: No chest wall deformity. Symmetrical expansion. LUNGS: Equal air entry with right basilar crackles, but no wheeze, rhonchi or dullness. CVS: Regular rate and rhythm, normal S1 and S2, no gallops, no murmurs, no rubs ABDOMEN: Soft, nontender. No hepatosplenomegaly, normal bowel sounds, no guarding or rigidity. EXTREMITIES: No clubbing, no edema, no cyanosis, 2+ pulses and upper and lower extremities. MUSCULOSKELETAL: Muscle strength and tone normal. SPINE: No scoliosis or deformity SKIN: No rashes CENTRAL NERVOUS SYSTEM: Alert and oriented -3. No focal deficits, tone is normal in all 4 extremities. PSYCHIATRIC: Alert and oriented -3. Appropriate affect. Intact judgment and insight. - Labs CBC & Chem 7: 01/27/20 13:21 01/27/20 13:21 Labs: Abnormal Lab Results - Last 24 Hours (Table) 01/27/20 01/28/20 Range/Units 21:35 11:44 POC Glucose (mg/dL) 117 H 104 H (75-99) mg/dL Assessment and Plan Plan: Assessment: 1 acute Covid 19 infection with secondary constitutional symptoms and shortness of breath with early signs of pneumonia with limited perihilar bilateral infiltrates 2 shortness of breath secondary to above 3 acute hypoxic respiratory failure secondary to above currently on 2 L about 2 by nasal cannula 4 history of lymphoma currently undergoing treatment with Revlimid 5 history of paroxysmal atrial fibrillation 6 BPH maintained on Flomax Plan: Continue weaning FiO2, continue Remdesivir, today is his day to of treatment, continue Decadron, Pepcid, vitamin C, zinc supplement, no acute events overnight, no fever, no worsening dyspnea, no worsening hypoxemia. We'll continue to follow, follow-up inflammatory markers in the morning. I performed a history & physical examination of the patient and discussed their management with my nurse practitioner, Dawna Alvarado. I reviewed the nurse practitioner's note and agree with the documented findings and plan of care. Lung sounds are positive for bibasilar crackles. The findings and the impression was discussed with the patient. I attest to the documentation by the nurse practitioner. Time with Patient: Less than 30
[2020-01-28 14:16] LABS: Hemoglobin A1C 4.9 % (4.0-6.0)
[2020-01-28 17:18] LABS: Glucose,Whole Blood 158 mg/dL (75-99)
[2020-01-28] MEDS: ENOXAPARIN 40 MG/0.4 ML SYRINGE SQ SCH (17:49)
[2020-01-28] MEDS ORDERED: IPRATROPIUM-ALBUTEROL 3 ML NEB INHALATION SCH ×2 (19:00→20:00)
[2020-01-28 19:47] LABS: Glucose,Whole Blood 100 mg/dL (75-99)
[2020-01-28] MEDS: REMDESIVIR (EUA) 100 MG in SODIUM CHLORIDE 0.9% 250 ML IVPB SCH (20:41)
[2020-01-28] MEDS: ALBUTEROL HFA INHALER INHALATION SCH (20:41)
[2020-01-28] MEDS: MELATONIN 5 MG TABLET PO SCH (20:43)
[2020-01-29 07:21] LABS: Glucose,Whole Blood 94 mg/dL (75-99)
[2020-01-29 07:32] LABS: Basophils % (A) 0 %; Eosinophils # (A) 0.1 k/uL (0-0.7); Eosinophils % (A) 1 %; HCT 41.2 % (39.0-53.0); HGB 13.6 gm/dL (13.0-17.5); Lymphocytes # (A) 0.5 k/uL (1.0-4.8); Lymphocytes % (A) 13 %; MCH 29.6 pg (25.0-35.0); MCHC 33.1 g/dL (31.0-37.0); MCV 89.6 fL (80.0-100.0); Mean Platelet Volume 6.8; Monocytes # (A) 0.3 k/uL (0-1.0); Monocytes % (A) 9 %; Neutrophils # (A) 2.9 k/uL (1.3-7.7); Neutrophils % (A) 75 %; Platelet Count 178 k/uL (150-450); Poikilocytosis Slight; RDW 13.9 % (11.5-15.5); WBC 3.9 k/uL (3.8-10.6)
[2020-01-29 07:40] LABS: D-Dimer 0.49 mg/L FEU (<0.60)
[2020-01-29] MEDS: dexAMETHasone 2 MG TAB PO SCH (07:50)
[2020-01-29] MEDS: ASCORBIC ACID 500 MG TAB PO SCH (07:51)
[2020-01-29] MEDS: TAMSULOSIN 0.4 MG CAP.ER.24H PO SCH (07:51)
[2020-01-29] MEDS: INSULIN ASPART (NovoLOG) 100 UNIT/ML VIAL SQ SCH ×4 (07:51→19:53)
[2020-01-29] MEDS: CHOLECALCIFEROL 1,000 UNIT TAB PO SCH (07:51)
[2020-01-29] MEDS: FAMOTIDINE 20 MG TAB PO SCH ×2 (07:51→19:51)
[2020-01-29] MEDS: ZINC SULFATE 220 MG CAP PO SCH (07:52)
[2020-01-29] MEDS: ALBUTEROL HFA INHALER INHALATION SCH ×4 (08:31→20:59)
--- NOTE | 2020-01-29 08:36 | XR ---
EXAMINATION TYPE: XR chest 1V portable DATE OF EXAM: 01/29/2020 HISTORY: Shortness of breath. COMPARISON: 01/27/2020 TECHNIQUE: Single view of the chest is submitted. FINDINGS: Demonstrated are scattered senescent parenchymal change. Patchy bilateral infiltrates persist and may have progressed slightly in the interval. Continued prog ress studies are advised. The heart is stable. Hilar and mediastinal structures are within normal limits. Degenerative changes are seen of the dorsal spine. IMPRESSION: 1. Patchy bilateral infiltrates persist and may have progressed slightly in the interval. Continued progress studies are advised.
[2020-01-29 11:14] LABS: Glucose,Whole Blood 114 mg/dL (75-99)
[2020-01-29 11:55] LABS: Albumin 3.5 g/dL (3.80-4.90); Albumin/Globulin Ratio 1.09 (1.60-3.17); Anion Gap 10.5 mmol/L (4.00-12.00); BUN/Creat Ratio 23.33 Ratio (12.00-20.00); C Reactive Protein 7.4 mg/dL (0.0-0.8); Calcium 8.7 mg/dL (8.7-10.3); Carbon Dioxide 24.5 mmol/L (21.6-31.8); Ferritin 385.6 ng/mL (22.0-322.0); Globulin 3.2 g/dL (1.6-3.3); Non-African American GFR(CKD) 93.2 (60.0-200.0); Potassium 3.9 mmol/L (3.5-5.5); Total Bilirubin 0.8 mg/dL (0.3-1.2); Total Protein 6.7 g/dL (6.2-8.2)
--- NOTE | 2020-01-29 12:51 | P.PN ---
Subjective Progress Note Date: 01/29/20 This is a 59-year-old gentleman admitted with acute COVID-19 pneumonia, acute hypoxic respiratory failure multiple other medical issues. Maintained on Decadron, Remdisiv, IV fluid hydration, Lovenox. Oxygen requirements worsened, up to 4 L nasal cannula required to maintain O2 sats in the high 90s. Dry nonproductive cough. Denies chest pain, palpitations. Afebrile. Blood sugars controlled. 01/29/2020 maintained on Covid regimen, breathing continues to improve. Oxygen weaned down to 3 L nasal cannula, maintaining O2 sats in the 90s. Fibrinogen 581, LDH, CRP trending down. Poor diet intake. Denies nausea vomiting or diarrhea. Denies abdominal pain. Denies chest pain or palpitations. Objective - Vital Signs Vital signs: Vital Signs Temp 97.5 F L 01/29/20 11:40 Pulse 64 01/29/20 11:40 Resp 18 01/29/20 11:40 BP 91/53 01/29/20 11:40 Pulse Ox 94 L 01/29/20 11:40 Intake & Output 01/28/20 01/29/20 01/29/20 18:59 06:59 18:59 Intake Total 720 250 Output Total 400 Balance 720 250 -400 Intake: Intake, IV Titration 250 Amount Remdesivir (Eua) 100 mg 250 In Sodium Chloride 0.9% 250 ml @ 250 mls/hr IVPB DAILY@1930 [facility] Rx#: [id number] Oral 720 Output: Urine 400 Other: Voiding Method Toilet Toilet Toilet # Voids 4 0 0 # Bowel Movements 0 0 - Exam PHYSICAL EXAM: VITAL SIGNS: [As above] GENERAL: Alert and oriented 3, Sitting up in bed, no acute distress. HEENT: Conjunctivae normal. eyes normal. Oral mucosa moist NECK: No JVD. No thyroid enlargement. No LNs CARDIOVASCULAR: S1, S2 regular.No murmur RESPIRATION: Breath sounds diminished in the bases. Fine bibasilar crackles ABDOMEN: Soft, nontender . No guarding. no masses palpable. Positive Bowel sounds heard. LEGS: No edema. no swelling. NERVOUS SYSTEM: Cranial N 2-12 grossly normal. Moves all 4 limbs. No focal deficits. Strength and sensation grossly intact. Skin: Warm and dry, no rash - Labs CBC & Chem 7: 01/29/20 06:32 01/29/20 06:32 Labs: Abnormal Lab Results - Last 24 Hours (Table) 01/28/20 01/28/20 01/29/20 Range/Units 17:17 19:46 06:32 Lymphocytes # 0.5 L (1.0-4.8) k/uL Fibrinogen (200-500) mg/dL BUN/Creatinine Ratio (12.00-20.00) Ratio POC Glucose (mg/dL) 158 H 100 H (75-99) mg/dL Ferritin (22.0-322.0) ng/mL AST (14-35) U/L Lactate Dehydrogenase (120-246) U/L C-Reactive Protein (0.0-0.8) mg/dL Albumin (3.80-4.90) g/dL Albumin/Globulin Ratio (1.60-3.17) g/dL 01/29/20 01/29/20 01/29/20 Range/Units 06:32 06:32 11:13 Lymphocytes # (1.0-4.8) k/uL Fibrinogen 581 H (200-500) mg/dL BUN/Creatinine Ratio 23.33 H (12.00-20.00) Ratio POC Glucose (mg/dL) 114 H (75-99) mg/dL Ferritin 385.6 H (22.0-322.0) ng/mL AST 38 H (14-35) U/L Lactate Dehydrogenase 356 H (120-246) U/L C-Reactive Protein 7.4 H (0.0-0.8) mg/dL Albumin 3.50 L (3.80-4.90) g/dL Albumin/Globulin Ratio 1.09 L (1.60-3.17) g/dL Microbiology - Last 24 Hours (Table) 01/27/20 13:21 Blood Culture - Preliminary Blood No Growth after 24 hours Assessment and Plan Assessment: Acute COVID-19 infection with bilateral pneumonia Acute hypoxic respiratory failure secondary to the above Diabetes mellitus type 2 Chronic proximal atrial fibrillation History of lymphoma BPH Plan: Continue on current medication regime ,monitoring and symptomatic treatment. Continue Remdesivir, Decadron, Lovenox. Increase activity as tolerated. Close monitoring of inflammatory markers. Follow closely with pulmonary. The impression and plan of care has been dictated as directed. : I performed a history and examination of this patient, discussed the same with the dictator. I agree with the dictator's note ,documented as a scribe. Any additional findings or plans will be noted.
[2020-01-29] MEDS: ENOXAPARIN 40 MG/0.4 ML SYRINGE SQ SCH (16:21)
[2020-01-29 16:50] LABS: Glucose,Whole Blood 105 mg/dL (75-99)
--- NOTE | 2020-01-29 18:19 | P.PN ---
Subjective Progress Note Date: 01/29/20 Principal diagnosis: Acute: 19 infection with secondary constitutional symptoms and early signs of pneumonia with limited perihilar bilateral infiltrates. This is a 59-year-old male patient was currently being hospitalized for shortness of breath and suspected pneumonia.. The patient has history of mental cell lymphoma. The patient has an out of town oncologist. He has been taken treatment with Rituxan and Revlimid as the patient has had recurrent disease. The patient came into the emergency department having difficulty breathing. He was tested for coronavirus COVID 19 infection on 01/22/2020 and he checked positive.. The patient came in to the hospital because of worsening symptoms of shortness of breath and cough. Denied having any headache. No nausea. No vo miting. No diarrhea. In the ED, the patient was afebrile. He was on 2 L of oxygen by nasal cannula with a pulse of 95%. The rest of the hemodynamic parameters were all stable. He had a white cell count of 3.9 with hemoglobin of 14.3. Platelet count was low at 143 and the patient and lymphopenia with a lymphocyte count of 0.3. Correlation profile was within normal. D-dimer was normal at 0.46. His LDH was 919, CRP was 76, sodium was 133, potassium was 4.4, influenza screen for influenza A and B were both negative. Bilateral pulmonary infiltrates mainly perihilar. No effusion. He doesn't report regarding his underlying malignancy On 01/28/2020 patient seen in follow-up on medical surgical floor. Patient is calm and comfortable, he is on 3 L of oxygen his pulse ox is 95%, still has some cough, and exertional dyspnea, but no acute distress, he continues on Remdesivir, Decadron, and Lovenox at prophylactic doses, his had no fever or chills, vital signs have been stable, no new chest x-ray, no acute events overnight. Her chest discomfort, no palpitations On 01/29/2020 patient seen in follow-up on the general medical surgical floor. He is awake and alert, in no acute distress, he remains on supplemental oxygen currently at 3 L pulse ox of 94%, his been afebrile, breathing comfortably, does cough and become short of breath with exertion. But overall feeling better, toheri gabriel he is on day 2 of Remdesivir treatment, she remains on prophylactic dose of Lovenox, and oral Decadron. Blood cultures have shown no growth. Follow-up chest x-ray shows patchy bilateral infiltrates that may have slightly progressed compared to previous exam. No acute events overnight. Denies any nausea vomiting diarrhea no abdominal pain. Objective - Vital Signs Vital signs: Vital Signs Temp 97.5 F L 01/29/20 11:40 Pulse 64 01/29/20 11:40 Resp 18 01/29/20 11:40 BP 91/53 01/29/20 11:40 Pulse Ox 94 L 01/29/20 11:40 Intake & Output 01/28/20 01/29/20 01/29/20 18:59 06:59 18:59 Intake Total 720 250 810 Output Total 400 Balance 720 250 410 Intake: Intake, IV Titration 250 Amount Remdesivir (Eua) 100 mg 250 In Sodium Chloride 0.9% 250 ml @ 250 mls/hr IVPB DAILY@1930 [facility] Rx#: [id number] Oral 720 810 Output: Urine 400 Other: Voiding Method Toilet Toilet Toilet # Voids 4 0 4 # Bowel Movements 0 0 - Exam GENERAL EXAM: Alert, active, 59-year-old white male, 3 L of oxygen the pulse ox 95% comfortable in no apparent distress. HEAD: Normocephalic/atraumatic. EYES: Normal reaction of pupils, equal size. Conjunctiva pink, sclera white. NOSE: Clear with pink turbinates. THROAT: No erythema or exudates. NECK: No masses, no JVD, no thyroid enlargement, no adenopathy. CHEST: No chest wall deformity. Symmetrical expansion. LUNGS: Equal air entry with right basilar crackles, but no wheeze, rhonchi or dullness. CVS: Regular rate and rhythm, normal S1 and S2, no gallops, no murmurs, no rubs ABDOMEN: Soft, nontender. No hepatosplenomegaly, normal bowel sounds, no guarding or rigidity. EXTREMITIES: No clubbing, no edema, no cyanosis, 2+ pulses and upper and lower extremities. MUSCULOSKELETAL: Muscle strength and tone normal. SPINE: No scoliosis or deformity SKIN: No rashes CENTRAL NERVOUS SYSTEM: Alert and oriented -3. No focal deficits, tone is normal in all 4 extremities. PSYCHIATRIC: Alert and oriented -3. Appropriate affect. Intact judgment and insight. - Labs CBC & Chem 7: 01/29/20 06:32 01/29/20 06:32 Labs: Abnormal Lab Results - Last 24 Hours (Table) 01/28/20 01/29/20 01/29/20 Range/Units 19:46 06:32 06:32 Lymphocytes # 0.5 L (1.0-4.8) k/uL Fibrinogen (200-500) mg/dL BUN/Creatinine Ratio 23.33 H (12.00-20.00) Ratio POC Glucose (mg/dL) 100 H (75-99) mg/dL Ferritin 385.6 H (22.0-322.0) ng/mL AST 38 H (14-35) U/L Lactate Dehydrogenase 356 H (120-246) U/L C-Reactive Protein 7.4 H (0.0-0.8) mg/dL Albumin 3.50 L (3.80-4.90) g/dL Albumin/Globulin Ratio 1.09 L (1.60-3.17) g/dL 01/29/20 01/29/20 01/29/20 Range/Units 06:32 11:13 16:48 Lymphocytes # (1.0-4.8) k/uL Fibrinogen 581 H (200-500) mg/dL BUN/Creatinine Ratio (12.00-20.00) Ratio POC Glucose (mg/dL) 114 H 105 H (75-99) mg/dL Ferritin (22.0-322.0) ng/mL AST (14-35) U/L Lactate Dehydrogenase (120-246) U/L C-Reactive Protein (0.0-0.8) mg/dL Albumin (3.80-4.90) g/dL Albumin/Globulin Ratio (1.60-3.17) g/dL Microbiology - Last 24 Hours (Table) 01/27/20 13:21 Blood Culture - Preliminary Blood No Growth after 48 hours Assessment and Plan Plan: Assessment: 1 acute Covid 19 infection with secondary constitutional symptoms and shortness of breath with early signs of pneumonia with limited perihilar bilateral infiltrates, patient has been started on Remdesivir on 01/28/2020 2 shortness of breath secondary to above 3 acute hypoxic respiratory failure secondary to above currently on 2 L about 2 by nasal cannula 4 history of lymphoma currently undergoing treatment with Revlimid 5 history of paroxysmal atrial fibrillation 6 BPH maintained on Flomax Plan: Continue current medical treatment, continue Remdesivir, continue oral Decadron, prophylactic dose of Lovenox, wean FiO2, monitor febrile pattern, monitor oxygenation pattern, today's chest x-ray has been reviewed, showing some progression in the appearance of bilateral patchy infiltrates. We'll continue to follow I performed a history & physical examination of the patient and discussed their management with my nurse practitioner, Dawna Alvarado. I reviewed the nurse practitioner's note and agree with the documented findings and plan of care. Lung sounds are positive for bibasilar crackles. The findings and the impression was discussed with the patient. I attest to the documentation by the nurse practitioner. Time with Patient: Less than 30
[2020-01-29 19:30] LABS: Glucose,Whole Blood 105 mg/dL (75-99)
[2020-01-29] MEDS: MELATONIN 5 MG TABLET PO SCH ×2 (19:37→19:50)
[2020-01-29] MEDS: REMDESIVIR (EUA) 100 MG in SODIUM CHLORIDE 0.9% 250 ML IVPB SCH (19:38)
[2020-01-30 07:09] LABS: D-Dimer 0.49 mg/L FEU (<0.60)
[2020-01-30 07:18] LABS: Glucose,Whole Blood 95 mg/dL (75-99)
[2020-01-30] MEDS: INSULIN ASPART (NovoLOG) 100 UNIT/ML VIAL SQ SCH ×4 (07:37→21:01)
[2020-01-30] MEDS: ALBUTEROL HFA INHALER INHALATION SCH ×4 (08:09→20:15)
[2020-01-30] MEDS: ASCORBIC ACID 500 MG TAB PO SCH (08:59)
[2020-01-30] MEDS: TAMSULOSIN 0.4 MG CAP.ER.24H PO SCH (09:00)
[2020-01-30] MEDS: CHOLECALCIFEROL 1,000 UNIT TAB PO SCH (09:00)
[2020-01-30] MEDS: dexAMETHasone 2 MG TAB PO SCH (09:00)
[2020-01-30] MEDS: FAMOTIDINE 20 MG TAB PO SCH ×2 (09:00→22:04)
[2020-01-30] MEDS: ZINC SULFATE 220 MG CAP PO SCH (09:00)
--- NOTE | 2020-01-30 09:47 | P.PN ---
Subjective Progress Note Date: 01/30/20 This is a 59-year-old gentleman admitted with acute COVID-19 pneumonia, acute hypoxic respiratory failure multiple other medical issues. Maintained on Decadron, Remdisiv, IV fluid hydration, Lovenox. Oxygen requirements worsened, up to 4 L nasal cannula required to maintain O2 sats in the high 90s. Dry nonproductive cough. Denies chest pain, palpitations. Afebrile. Blood sugars controlled. 01/29/2020 maintained on Covid regimen, breathing continues to improve. Oxygen weaned down to 3 L nasal cannula, maintaining O2 sats in the 90s. Fibrinogen 581, LDH, CRP trending down. Poor diet intake. Denies nausea vomiting or diarrhea. Denies abdominal pain. Denies chest pain or palpitations. 01/30/2020 chest x-ray yesterday suggestive of persistent patchy bilateral infiltrates with progression. Maintaining O2 sats of 90s on 4 L nasal cannula. Afebrile, preliminary blood cultures negative. Labs pending. Good diet intake. No nausea vomiting or diarrhea. Denies chest pain, palpitations. Objective - Vital Signs Vital signs: Vital Signs Temp 97.8 F 01/30/20 05:00 Pulse 70 01/30/20 05:00 Resp 20 01/30/20 05:00 BP 112/70 01/30/20 05:00 Pulse Ox 93 L 01/30/20 05:00 Intake & Output 01/29/20 01/30/20 01/30/20 18:59 06:59 18:59 Intake Total 810 590 Output Total 400 Balance 410 590 Intake: Oral 810 590 Output: Urine 400 Other: Voiding Method Toilet Toilet Toilet # Voids 4 2 # Bowel Movements 0 - Exam PHYSICAL EXAM: VITAL SIGNS: [As above] GENERAL: Alert and oriented 3, Sitting up in bed, NAD, eating breakfast. HEENT: Conjunctivae normal. eyes normal. Oral mucosa moist NECK: Supple, No JVD. CARDIOVASCULAR: S1, S2 regular.No murmur RESPIRATION: Breath sounds diminished in the bases. Fine bibasilar crackles ABDOMEN: Soft, nondistended, nontender . No guarding. no masses palpable. Positive Bowel sounds heard. LEGS: No edema. no swelling. NERVOUS SYSTEM: Cranial N 2-12 grossly normal. No focal deficits. Strength and sensation grossly intact. Skin: Warm and dry, no rash - Labs CBC & Chem 7: 01/29/20 06:32 01/29/20 06:32 Labs: Abnormal Lab Results - Last 24 Hours (Table) 01/29/20 01/29/20 01/29/20 Range/Units 06:32 11:13 16:48 Fibrinogen (200-500) mg/dL BUN/Creatinine Ratio 23.33 H (12.00-20.00) Ratio POC Glucose (mg/dL) 114 H 105 H (75-99) mg/dL Ferritin 385.6 H (22.0-322.0) ng/mL AST 38 H (14-35) U/L Lactate Dehydrogenase 356 H (120-246) U/L C-Reactive Protein 7.4 H (0.0-0.8) mg/dL Albumin 3.50 L (3.80-4.90) g/dL Albumin/Globulin Ratio 1.09 L (1.60-3.17) g/dL 01/29/20 01/30/20 Range/Units 19:29 06:06 Fibrinogen 530 H (200-500) mg/dL BUN/Creatinine Ratio (12.00-20.00) Ratio POC Glucose (mg/dL) 105 H (75-99) mg/dL Ferritin (22.0-322.0) ng/mL AST (14-35) U/L Lactate Dehydrogenase (120-246) U/L C-Reactive Protein (0.0-0.8) mg/dL Albumin (3.80-4.90) g/dL Albumin/Globulin Ratio (1.60-3.17) g/dL Microbiology - Last 24 Hours (Table) 01/27/20 13:21 Blood Culture - Preliminary Blood No Growth after 48 hours Assessment and Plan Assessment: Acute COVID-19 infection with bilateral pneumonia Acute hypoxic respiratory failure secondary to the above Diabetes mellitus type 2 Chronic proximal atrial fibrillation History of lymphoma BPH Plan: Continue on current medication regime ,monitoring and symptomatic treatment. Remote telemetry. magnesium level ordered. Maintain Covid regimen. Increase activity as tolerated. Labs pending. The impression and plan of care has been dictated as directed. : I performed a history and examination of this patient, discussed the same with the dictator. I agree with the dictator's note ,documented as a scribe. Any additional findings or plans will be noted.
[2020-01-30 11:27] LABS: Glucose,Whole Blood 101 mg/dL (75-99)
[2020-01-30 11:33] LABS: African American GFR (CKD) 113.3 (60.0-200.0); Albumin 3.4 g/dL (3.80-4.90); Albumin/Globulin Ratio 1.1 (1.60-3.17); C Reactive Protein 5.3 mg/dL (0.0-0.8); Calcium 8.9 mg/dL (8.7-10.3); Globulin 3.1 g/dL (1.6-3.3); Non-African American GFR(CKD) 97.8 (60.0-200.0); Potassium 5.1 mmol/L (3.5-5.5); Total Bilirubin 0.7 mg/dL (0.3-1.2); Total Protein 6.5 g/dL (6.2-8.2)
--- NOTE | 2020-01-30 14:18 | P.PN ---
Subjective Progress Note Date: 01/30/20 Principal diagnosis: Acute: 19 infection with secondary constitutional symptoms and early signs of pneumonia with limited perihilar bilateral infiltrates. This is a 59-year-old male patient was currently being hospitalized for shortness of breath and suspected pneumonia.. The patient has history of mental cell lymphoma. The patient has an out of town oncologist. He has been taken treatment with Rituxan and Revlimid as the patient has had recurrent disease. The patient came into the emergency department having difficulty breathing. He was tested for coronavirus COVID 19 infection on 01/22/2020 and he checked positive.. The patient came in to the hospital because of worsening symptoms of shortness of breath and cough. Denied having any headache. No nausea. No vo miting. No diarrhea. In the ED, the patient was afebrile. He was on 2 L of oxygen by nasal cannula with a pulse of 95%. The rest of the hemodynamic parameters were all stable. He had a white cell count of 3.9 with hemoglobin of 14.3. Platelet count was low at 143 and the patient and lymphopenia with a lymphocyte count of 0.3. Correlation profile was within normal. D-dimer was normal at 0.46. His LDH was 919, CRP was 76, sodium was 133, potassium was 4.4, influenza screen for influenza A and B were both negative. Bilateral pulmonary infiltrates mainly perihilar. No effusion. He doesn't report regarding his underlying malignancy On 01/28/2020 patient seen in follow-up on medical surgical floor. Patient is calm and comfortable, he is on 3 L of oxygen his pulse ox is 95%, still has some cough, and exertional dyspnea, but no acute distress, he continues on Remdesivir, Decadron, and Lovenox at prophylactic doses, his had no fever or chills, vital signs have been stable, no new chest x-ray, no acute events overnight. Her chest discomfort, no palpitations On 01/29/2020 patient seen in follow-up on the general medical surgical floor. He is awake and alert, in no acute distress, he remains on supplemental oxygen currently at 3 L pulse ox of 94%, his been afebrile, breathing comfortably, does cough and become short of breath with exertion. But overall feeling better, toheri gabriel he is on day 2 of Remdesivir treatment, she remains on prophylactic dose of Lovenox, and oral Decadron. Blood cultures have shown no growth. Follow-up chest x-ray shows patchy bilateral infiltrates that may have slightly progressed compared to previous exam. No acute events overnight. Denies any nausea vomiting diarrhea no abdominal pain. On 01/30/2020 patient seen in follow-up on Gen. medical surgical floor. Still requiring 4 L of oxygen, his pulse ox is 93%, today's is fourth day of R emdesivir treatment, he states he is feeling better, doing better, his appetite is fair, his been afebrile, no complaint of chest pain, though has exertional dyspnea. No nausea or vomiting. Remains on oral Decadron, prophylactic dose of Lovenox, vitamin C, zinc. We'll obtain follow-up chest x-ray in the morning Objective - Vital Signs Vital signs: Vital Signs Temp 97.7 F 01/30/20 12:15 Pulse 68 01/30/20 12:15 Resp 17 01/30/20 12:15 BP 110/69 01/30/20 12:15 Pulse Ox 92 L 01/30/20 12:15 Intake & Output 01/29/20 01/30/20 01/30/20 18:59 06:59 18:59 Intake Total 810 590 Output Total 400 Balance 410 590 Intake: Oral 810 590 Output: Urine 400 Other: Voiding Method Toilet Toilet Toilet # Voids 4 2 # Bowel Movements 0 - Exam GENERAL EXAM: Alert, active, 59-year-old white male, 4 L of oxygen the pulse ox 93% comfortable in no apparent distress. HEAD: Normocephalic/atraumatic. EYES: Normal reaction of pupils, equal size. Conjunctiva pink, sclera white. NOSE: Clear with pink turbinates. THROAT: No erythema or exudates. NECK: No masses, no JVD, no thyroid enlargement, no adenopathy. CHEST: No chest wall deformity. Symmetrical expansion. LUNGS: Equal air entry with right basilar crackles, but no wheeze, rhonchi or dullness. CVS: Regular rate and rhythm, normal S1 and S2, no gallops, no murmurs, no rubs ABDOMEN: Soft, nontender. No hepatosplenomegaly, normal bowel sounds, no guarding or rigidity. EXTREMITIES: No clubbing, no edema, no cyanosis, 2+ pulses and upper and lower extremities. MUSCULOSKELETAL: Muscle strength and tone normal. SPINE: No scoliosis or deformity SKIN: No rashes CENTRAL NERVOUS SYSTEM: Alert and oriented -3. No focal deficits, tone is normal in all 4 extremities. PSYCHIATRIC: Alert and oriented -3. Appropriate affect. Intact judgment and insight. - Labs CBC & Chem 7: 01/29/20 06:32 01/30/20 06:06 Labs: Abnormal Lab Results - Last 24 Hours (Table) 01/29/20 01/29/20 01/30/20 Range/Units 16:48 19:29 06:06 Fibrinogen 530 H (200-500) mg/dL BUN/Creatinine Ratio (12.00-20.00) Ratio POC Glucose (mg/dL) 105 H 105 H (75-99) mg/dL Lactate Dehydrogenase (120-246) U/L C-Reactive Protein (0.0-0.8) mg/dL Albumin (3.80-4.90) g/dL Albumin/Globulin Ratio (1.60-3.17) g/dL 01/30/20 01/30/20 Range/Units 06:06 11:26 Fibrinogen (200-500) mg/dL BUN/Creatinine Ratio 25.00 H (12.00-20.00) Ratio POC Glucose (mg/dL) 101 H (75-99) mg/dL Lactate Dehydrogenase 338 H (120-246) U/L C-Reactive Protein 5.3 H (0.0-0.8) mg/dL Albumin 3.40 L (3.80-4.90) g/dL Albumin/Globulin Ratio 1.10 L (1.60-3.17) g/dL Microbiology - Last 24 Hours (Table) 01/27/20 13:21 Blood Culture - Preliminary Blood No Growth after 48 hours Assessment and Plan Plan: Assessment: 1 acute Covid 19 infection with secondary constitutional symptoms and shortness of breath with early signs of pneumonia with limited perihilar bilateral infiltrates, patient has been started on Remdesivir on 01/28/2020 2 shortness of breath secondary to above 3 acute hypoxic respiratory failure secondary to above currently on 2 L about 2 by nasal cannula 4 history of lymphoma currently undergoing treatment with Revlimid 5 history of paroxysmal atrial fibrillation 6 BPH maintained on Flomax Plan: Continue oral Decadron, continue Remdesivir treatment, patient is feeling better, still requiring supplemental oxygen, no fever, follow-up chest x-ray in the morning, we'll continue monitoring for signs of worsening hypoxemia dyspnea, fever. I performed a history & physical examination of the patient and discussed their management with my nurse practitioner, Dawna Alvarado. I reviewed the nurse practitioner's note and agree with the documented findings and plan of care. Lung sounds are positive for bibasilar crackles. The findings and the impressio n was discussed with the patient. I attest to the documentation by the nurse practitioner. Time with Patient: Less than 30
[2020-01-30 17:24] LABS: Glucose,Whole Blood 103 mg/dL (75-99)
[2020-01-30] MEDS: ENOXAPARIN 40 MG/0.4 ML SYRINGE SQ SCH (17:53)
[2020-01-30 20:57] LABS: Glucose,Whole Blood 97 mg/dL (75-99)
[2020-01-30] MEDS: REMDESIVIR (EUA) 100 MG in SODIUM CHLORIDE 0.9% 250 ML IVPB SCH (21:19)
[2020-01-30] MEDS: ALPRAZolam 0.5 MG TAB PO PRN (21:20)
--- NOTE | 2020-01-31 07:27 | XR ---
EXAMINATION TYPE: XR chest 1V DATE OF EXAM: 01/31/2020 HISTORY: Shortness of breath. COMPARISON: 01/29/2020 TECHNIQUE: Single view of the chest is submitted. FINDINGS: Demonstrated are scattered senescent parenchymal change. Upper, mid and lower lung zone infiltrates persist left greater than right. No significant change see n. MediPort catheter is in place. The heart is stable. Hilar and mediastinal structures are within normal limits. Degenerative changes are seen of the dorsal spine. IMPRESSION: 1. Upper, mid and lower lung zone infiltrates persist left greater than right. No significant change seen.
[2020-01-31 07:37] LABS: Glucose,Whole Blood 87 mg/dL (75-99)
[2020-01-31 07:46] LABS: D-Dimer 0.54 mg/L FEU (<0.60)
[2020-01-31] MEDS: ALBUTEROL HFA INHALER INHALATION SCH ×4 (08:22→19:22)
[2020-01-31] MEDS: INSULIN ASPART (NovoLOG) 100 UNIT/ML VIAL SQ SCH ×4 (09:57→19:36)
[2020-01-31] MEDS: ZINC SULFATE 220 MG CAP PO SCH (10:47)
[2020-01-31] MEDS: ASCORBIC ACID 500 MG TAB PO SCH (10:48)
[2020-01-31] MEDS: dexAMETHasone 2 MG TAB PO SCH (10:48)
[2020-01-31] MEDS: FAMOTIDINE 20 MG TAB PO SCH ×2 (10:48→19:41)
[2020-01-31] MEDS: CHOLECALCIFEROL 1,000 UNIT TAB PO SCH (10:48)
[2020-01-31] MEDS: TAMSULOSIN 0.4 MG CAP.ER.24H PO SCH (10:49)
[2020-01-31 11:55] LABS: Glucose,Whole Blood 86 mg/dL (75-99)
[2020-01-31 11:55] LABS: African American GFR (CKD) 113.3 (60.0-200.0); Albumin 3.2 g/dL (3.80-4.90); Albumin/Globulin Ratio 1.1 (1.60-3.17); Anion Gap 4.4 mmol/L (4.00-12.00); BUN/Creat Ratio 21.25 Ratio (12.00-20.00); Calcium 8.7 mg/dL (8.7-10.3); Carbon Dioxide 27.6 mmol/L (21.6-31.8); Globulin 2.9 g/dL (1.6-3.3); Non-African American GFR(CKD) 97.8 (60.0-200.0); Potassium 4.9 mmol/L (3.5-5.5); Total Bilirubin 0.6 mg/dL (0.3-1.2); Total Protein 6.1 g/dL (6.2-8.2)
[2020-01-31] MEDS: ENOXAPARIN 40 MG/0.4 ML SYRINGE SQ SCH (16:40)
[2020-01-31 17:30] LABS: Glucose,Whole Blood 111 mg/dL (75-99)
[2020-01-31 19:36] LABS: Glucose,Whole Blood 117 mg/dL (75-99)
[2020-01-31] MEDS: MELATONIN 5 MG TABLET PO SCH (19:40)
[2020-01-31] MEDS: ALPRAZolam 0.5 MG TAB PO PRN (19:41)
[2020-01-31] MEDS: REMDESIVIR (EUA) 100 MG in SODIUM CHLORIDE 0.9% 250 ML IVPB SCH (19:41)
[2020-01-31] MEDS: metFORMIN 500 MG TAB PO SCH (21:15)
[2020-01-31] MEDS: ACYCLOVIR 200 MG CAP PO SCH (21:15)
--- NOTE | 2020-02-01 04:12 | PN ---
PROGRESS NOTE DATE OF SERVICE: 01/31/2020 I am covering for Dr. Chester. This 59-year-old gentleman admitted with bilateral COVID-19 pneumonia with perihilar bilateral infiltrates, started on remdesivir on 01/27. He will be finishing the dose 2 days from now. The patient also has shortness of breath. The patient is being closely monitored at this time. The most recent chest x-ray which was personally evaluated by me showed extensive bilateral lesions. PAST MEDICAL HISTORY: Reviewed. REVIEW OF SYSTEMS: CARDIOVASCULAR SYSTEM: No angina. RESPIRATORY SYSTEM: As mentioned earlier. GI: As mentioned earlier. : No dysuria. NERVOUS SYSTEM: No numbness or weakness. CURRENT MEDICATIONS: Current medications are reviewed and include: Ventolin, Xanax, Vitamin C, vitamin D3, Hexadrol, Lovenox, Pepcid, Flomax, Orazinc. PHYSICAL EXAMINATION: The patient is alert and oriented x3. Pulse is 69, blood pressure 116/76, respiration 18, temperature 97.8, pulse ox 97% on 4 L. HEENT: Conjunctivae normal. NECK: No jugular venous distention. CARDIOVASCULAR: S1, S2 muffled. RESPIRATORY: Breath sounds diminished at the bases. Bilateral scattered rhonchi and crackles. ABDOMEN: Soft, nontender. LEGS: No edema, no swelling. NERVOUS SYSTEM: No focal deficits. LABS: Albumin 3.2. CBC noted. Accu-Cheks noted. ASSESSMENT: 1. Acute COVID-19 with acute bilateral interstitial pneumonia with acute hypoxic respiratory failure. 2. Mild thrombocytopenia. 3. Increased random blood sugar. 4. History of diabetes mellitus type 2. 5. History of mantle cell lymphoma. 6. History of hernia repair. 7. Remote history of nicotine dependence. 8. Obesity with body mass index of 31.1. 9. FULL CODE. RECOMMENDATIONS AND DISCUSSION: This 59-year-old gentleman who presented with multiple complex medical issues, we will monitor the patient closely. Continue the current medications, continue with bronchodilators. Continue the rest of medications. Continue with symptomatic treatment including Lovenox and zinc and remdesivir. Closely follow with Pulmonary. Guarded prognosis because of multiple complex medical issues. Further recommendations to follow. MMODL / IJN: [id number] /
[2020-02-01 07:36] LABS: Glucose,Whole Blood 84 mg/dL (75-99)
[2020-02-01 08:46] VITALS: BP 105/69; PULSE 58; RESP 18; TEMP 97.5
[2020-02-01] MEDS: ALBUTEROL HFA INHALER INHALATION SCH ×2 (09:16→11:07)
[2020-02-01] MEDS: INSULIN ASPART (NovoLOG) 100 UNIT/ML VIAL SQ SCH ×2 (09:21→12:33)
[2020-02-01] MEDS: dexAMETHasone 2 MG TAB PO SCH (09:24)
[2020-02-01] MEDS: ACYCLOVIR 200 MG CAP PO SCH (09:24)
[2020-02-01] MEDS: TAMSULOSIN 0.4 MG CAP.ER.24H PO SCH (09:24)
[2020-02-01] MEDS: CHOLECALCIFEROL 1,000 UNIT TAB PO SCH (09:24)
[2020-02-01] MEDS: metFORMIN 500 MG TAB PO SCH (09:24)
[2020-02-01] MEDS: FAMOTIDINE 20 MG TAB PO SCH (09:24)
[2020-02-01] MEDS: ZINC SULFATE 220 MG CAP PO SCH (09:24)
[2020-02-01] MEDS: ASCORBIC ACID 500 MG TAB PO SCH (09:24)
[2020-02-01 11:35] LABS: Glucose,Whole Blood 104 mg/dL (75-99)
[2020-02-01 12:08] LABS: Basophils % (A) 0 %; Eosinophils # (A) 0.1 k/uL (0-0.7); Eosinophils % (A) 1 %; HCT 37.3 % (39.0-53.0); HGB 12.1 gm/dL (13.0-17.5); Lymphocytes # (A) 0.5 k/uL (1.0-4.8); Lymphocytes % (A) 13 %; MCH 29.1 pg (25.0-35.0); MCHC 32.6 g/dL (31.0-37.0); MCV 89.4 fL (80.0-100.0); Mean Platelet Volume 7.1; Monocytes # (A) 0.4 k/uL (0-1.0); Monocytes % (A) 10 %; Neutrophils # (A) 2.7 k/uL (1.3-7.7); Neutrophils % (A) 74 %; Platelet Count 164 k/uL (150-450); Poikilocytosis Slight; RBC 4.17 m/uL (4.30-5.90); RDW 13.7 % (11.5-15.5); WBC 3.6 k/uL (3.8-10.6)
[2020-02-01 12:48] VITALS: BMI 31.1
--- NOTE | 2020-02-01 14:25 | P.DS ---
Providers Date of admission: 01/27/20 14:39 Expected date of discharge: 02/01/20 Attending physician: Pablo Chester Consults: 01/27/20 14:39 Consult Physician Urgent Consulting Provider: Herberth Dumont Consult Reason/Comments: COVID pneumonia Do you want consulting provider notified?: Yes Primary care physician: Pablo Chester [facility] Course: Final diagnosis Acute Covid 19 with acute bilateral interstitial pneumonia with acute hypoxic respiratory failure Mild thrombocytopenia Increased random blood sugar History diabetes mellitus type 2 History of mantle cell lymphoma History of hernia repair Remote history of nicotine dependence Obesity with a body mass index of 31.1 Full code Discharge disposition Patient is being discharged in a stable condition with guarded prognosis to home. Patient will follow-up with Dr. Chester in the outpatient setting upon discharge. Patient also instructed to continue with dexamethasone, zinc supplements, and albuterol inhaler in the outpatient setting. Prescriptions provided. Total time taken is greater than 35 minutes. History of present illness This is a 59-year-old male who was recently admitted with bilateral covid 19 pneumonia with perihilar bilateral infiltrates and was being closely monitored. Infectious disease and pulmonary following. Patient initiated on Remdesivir and completed the course. Patient also continued on dexamethasone along with zinc supplements and albuterol inhaler. Patient will continue with this in the outpatient setting to complete the course. Patient instructed to follow-up with Dr. Chester in the outpatient setting upon discharge. Patient also instructed to continue to quarantine for an additional 7-10 days until follow-up with primary care provider. Patient was having continued shortness of breath requiring oxygen although a home O2 eval was done and oxygen saturation was maintained at 92% on room air. Patient will not qualify for home O2. Currently no reports of chest pain, worsening shortness of breath, or palpitations. Patient is afebrile. No reports of nausea or vomiting and patient is tolerating diet. Patient states he would really like to go home today. Patient will be going home today. On exam vital signs are stable. Temp is 97.5F, pulse is 58, respirations are 18, blood pressure is 105/69, oxygen saturation is 92-96% on room air. Cardio S1, S2 are muffled. Respiratory system shows diminished breath sounds at the bases with no wheezing or rhonchi noted. Abdomen is soft and nontender. Nervous system shows no focal deficits. Please refer to medication reconciliation sheet for a list of medications. Patient Condition at Discharge: Stable Plan - Discharge Summary Discharge Rx Participant: Yes New Discharge Prescriptions: New dexAMETHasone [Hexadrol] 6 mg PO DAILY 5 Days #5 tab Zinc Sulfate [Orazinc] 220 mg PO DAILY 30 Days #30 cap Famotidine [Pepcid] 20 mg PO DAILY 30 Days #30 tab Albuterol Inhaler [Ventolin Hfa Inhaler] 2 puff INHALATION RT-QID 30 Days #1 puff Ascorbic Acid [Vitamin C] 1,000 mg PO DAILY 30 Days #30 tab Cholecalciferol [Vitamin D3 (25 Mcg = 1000 Iu)] 1,000 unit PO DAILY 30 Days #30 tab Continue metFORMIN HCL [Glucophage] 500 mg PO BID Tamsulosin [Flomax] 0.4 mg PO DAILY Lenalidomide [Revlimid] 25 mg PO DIRECTED Acyclovir 400 mg PO BID Discontinued predniSONE See Taper PO DAILY Discharge Medication List metFORMIN HCL [Glucophage] 500 mg PO BID 06/20/19 [History] Acyclovir 400 mg PO BID 01/27/20 [History] Lenalidomide [Revlimid] 25 mg PO DIRECTED 01/27/20 [History] Tamsulosin [Flomax] 0.4 mg PO DAILY 01/27/20 [History] Albuterol Inhaler [Ventolin Hfa Inhaler] 2 puff INHALATION RT-QID 30 Days #1 puff 02/01/20 [Rx] Ascorbic Acid [Vitamin C] 1,000 mg PO DAILY 30 Days #30 tab 02/01/20 [Rx] Cholecalciferol [Vitamin D3 (25 Mcg = 1000 Iu)] 1,000 unit PO DAILY 30 Days #30 tab 02/01/20 [Rx] Famotidine [Pepcid] 20 mg PO DAILY 30 Days #30 tab 02/01/20 [Rx] Zinc Sulfate [Orazinc] 220 mg PO DAILY 30 Days #30 cap 02/01/20 [Rx] dexAMETHasone [Hexadrol] 6 mg PO DAILY 5 Days #5 tab 02/01/20 [Rx] Follow up Appointment(s)/Referral(s): Pablo Chester DO [Primary Care Provider] - 1-2 days (not open at time of discharge . please call tuesday to make appt.) Patient Instructions/Handouts: Famotidine (By mouth), Albuterol (By breathing), Zinc Sulfate (By mouth), Ascorbic Acid (By mouth), Dexamethasone (By mouth), Cholecalciferol (By mouth), How to Stop Smoking (DC) Activity/Diet/Wound Care/Special Instructions: Civid 19 discharge sheet- 11 things you can do to manage your health at home Activity Limited until follow-up Continue current diet Continue to monitor blood sugars before meals at bedtime and keep a diary for primary care follow-up Follow-up with primary care provider in the outpatient setting Discharge Disposition: HOME SELF-CARE
[2020-02-01 19:14] LABS: African American GFR (CKD) 113.3 (60.0-200.0); Anion Gap 5.8 mmol/L (4.00-12.00); Calcium 8.3 mg/dL (8.7-10.3); Carbon Dioxide 26.2 mmol/L (21.6-31.8); Non-African American GFR(CKD) 97.8 (60.0-200.0); Potassium 3.8 mmol/L (3.5-5.5)
== END 2020-02-01 13:59 | disposition home or self-care (01) | DRG 177 ==
LOC: EC 12:39 → 6NMEDSUR 14:39
PROVIDERS: ADMIT Family Medicine; ATTEND Family Medicine
DX: U07.1 COVID-19 (principal); J96.01 Acute respiratory failure with hypoxia; C83.10 Mantle cell lymphoma, unspecified site; J84.9 Interstitial pulmonary disease, unspecified; D69.6 Thrombocytopenia, unspecified; D72.810 Lymphocytopenia; N40.0 Benign prostatic hyperplasia without lower urinary tract symptoms; E66.9 Obesity, unspecified; E11.9 Type 2 diabetes mellitus without complications; I48.0 Paroxysmal atrial fibrillation; Z68.31 Body mass index [BMI] 31.0-31.9, adult; Z79.82 Long term (current) use of aspirin; Z79.84 Long term (current) use of oral hypoglycemic drugs; Z79.899 Other long term (current) drug therapy; Z91.013 Allergy to seafood; Z82.49 Family history of ischemic heart disease and other diseases of the circulatory system; Z87.891 Personal history of nicotine dependence; Z90.89 Acquired absence of other organs; Z98.890 Other specified postprocedural states; Z86.19 Personal history of other infectious and parasitic diseases
CPT/HCPCS: 36415; 71045; 80048; 80053; 82728; 83036; 83605; 83615; 83735; 84145; 85025; 85379; 85384; 85610; 85730; 86140; 87040; 87502; 93005; 94640; 96365; 99285

== ENCOUNTER 2022-03-26 12:28 | Day surgery (SDC) | payer BC ==
[2022-03-23 11:15] VITALS: BMI 38.9
--- NOTE | 2022-03-25 19:12 | HP ---
HISTORY AND PHYSICAL CHIEF COMPLAINT: Fluid in the left middle ear space. HISTORY OF PRESENT ILLNESS: This patient is a 61-year-old male, who was seen in my office complaining of having a plugged sensation in his left ear. The patient states that the area had been plugged for approximately 3 months. He noted that when he spoke it sound as if he had his head struck in a barrel. He has been on numerous antibiotics. He is noted to have an immunosuppressive disorder. It was a type of lymphoma. PAST MEDICAL HISTORY: Reveals he has no allergies to medications. CURRENT MEDICATIONS: 1. Metformin. 2. Tamsulosin. 3. Acyclovir. REVIEW OF SYSTEMS: Reveals that metabolic endocrine system is positive for type 2 diabetes. Remainder of the review of systems is essentially unremarkable. The patient denies any previous surgeries other than insertion of a Mediport. PHYSICAL EXAMINATION: GENERAL: The patient is a 61-year-old male, who is alert and cooperative. HEENT: The patient is normocephalic. Examination of the patient's right ear is unremarkable. Examination of the patient's left ear reveals that the tympanic membrane is dull with evidence of fluid in the left middle ear space. Pupils equal, round, reactive to light and accommodation. Extraocular movements are within normal limits. Intranasal examination reveals [id number] septal deviation with compensatory hypertrophy of the inferior turbinates and a moderate amount of mucus on the mucous membranes and draining down the posterior pharynx. Examination of oropharynx, cranial nerves 2 through 12, the remainder of the head and neck exam is unremarkable. CHEST/CARDIOVASCULAR: Both lung culp are clear to percussion and auscultation. The patient is in regular sinus rhythm. S1, S2 are present without evidence any murmurs, S3s or S4s. Peripheral pulses are bilaterally symmetrical. ABDOMEN: There is no evidence any masses, megaly, or tenderness. The abdomen is soft. SKIN: Unremarkable. MUSCULOSKELETAL/NEUROLOGICAL: All within normal limits. RECTAL: Deferred at this time because the patient has this done on a regular basis at his family physician's office. The remainder of the physical exam is unremarkable. IMPRESSION: Left chronic serous otitis media. PLAN: The patient is scheduled to undergo a left myringotomy with insertion of ventilation tubes under IV sedation with MAC. Attention, RNs in the pre-surgical area, I have not ordered any pre-surgical prophylactic antibiotics for this patient. If the pharmacy department sends any pre- surgical prophylactic antibiotics to the pre-surgical area for this patient, please cancel that order and return the medications to the pharmacy department. Also, make sure that the patient's account is credited appropriately. I have discussed the risks, benefits and alternative therapies for the above- mentioned procedure and for both sedation/analgesia as well as necessary blood product administration, if indicated, as they pertain to this patient. The patient has indicated his understanding and acceptance of the risks and procedures discussed. BOWENL / IJN: [id number] / ROSANNE
[~2022-03-26 12:28] MED LIST changes: +DEXAMETHASONE SOD PHOSPHATE 4 MG/ML 1 ML VIAL IV ONE; -GLYCOPYRROLATE 0.2 MG/ML 2 ML VIAL ONE; +HYDROmorphone 0.5 MG/0.5 ML SYRINGE IVP PRN; -LIDOCAINE 1% 20 ML VIAL (10MG/ML) FOR IV START INTRADERMA PRN; -LIDOCAINE 1% INJ 10MG/ML (20 ML MDV) ONE; +MIDAZOLAM 2 MG/2 ML VIAL IV PRN; +ONDANSETRON 4 MG/2 ML VIAL IVP ONE; -PROPOFOL 10 MG/ML 20 ML VIAL IV ONE; +Pre Op ABX Message 1 EACH MISC MISCELLANE ONE; +SCOPOLAMINE 1 MG/72 HR PATCH TRANSDERM ONE
[2022-03-26 13:10] VITALS: TEMP 97.5
[2022-03-26 13:19] LABS: Glucose,Whole Blood 116 mg/dL (70-110)
[2022-03-26] MEDS ORDERED: OFLOXACIN 0.3% OPHTH DROPS 5 ML BOTTLE BOTH EARS ONE (13:59)
[2022-03-26] MEDS ORDERED: LIDOCAINE 2% INJ 20 MG/ML (2 ML VIAL) ONE (14:11)
[2022-03-26] MEDS ORDERED: MIDAZOLAM 2 MG/2 ML VIAL ONE (14:11)
[2022-03-26] MEDS ORDERED: PROPOFOL 10 MG/ML 20 ML VIAL IV ONE (14:11)
[2022-03-26] MEDS ORDERED: OFLOXACIN 0.3% OPHTH DROPS 5 ML BOTTLE LEFT EAR ONE ×2 (14:34)
[2022-03-26 14:52] LABS: Glucose,Whole Blood 123 mg/dL (70-110)
[2022-03-26 15:20] VITALS: RESP 16
[2022-03-26 15:34] VITALS: BP 118/78; PULSE 69
--- NOTE | 2022-03-29 23:28 | OP ---
OPERATIVE REPORT PREOPERATIVE DIAGNOSIS: Chronic left serous otitis media. POSTOPERATIVE DIAGNOSIS: Chronic left serous otitis media. ANESTHESIA: General. PROCEDURE PERFORMED: Left myringotomy with insertion of an Activent ventilation tube. COMPLICATIONS: None. ESTIMATED BLOOD LOSS: Zero. DESCRIPTION OF PROCEDURE: The patient was placed on the operating table in the supine position, and after uneventful induction and LMA intubation, satisfactory general anesthesia was obtained. Next, the patient's left ear was draped in usual and customary fashion. Following this, using the Zeiss operating microscope and a #3 aural speculum, the left external auditory canal was cleansed of all wax and debris. Next, using the myringotomy knife, an incision was made in the anterior-inferior quadrant of the left tympanic membrane. The left middle ear space was suctioned free of all fluid. Next, a Activent [place] ventilation tube was inserted through the previously made myringotomy incision without difficulty. Next, at this point, the procedure was terminated. There were no intraoperative complications. The patient tolerated the procedure well. The patient was returned to the recovery room in satisfactory condition. MMODL / IJN: [id number] /
== END 2022-03-26 15:50 | disposition home or self-care (01) ==
LOC: OR 12:28
PROVIDERS: ATTEND Otolaryngology
DX: H65.22 Chronic serous otitis media, left ear (principal); E11.9 Type 2 diabetes mellitus without complications; Z79.84 Long term (current) use of oral hypoglycemic drugs; Z79.83 Long term (current) use of bisphosphonates; Z79.899 Other long term (current) drug therapy; J34.2 Deviated nasal septum; J34.3 Hypertrophy of nasal turbinates; Z98.890 Other specified postprocedural states; E66.01 Morbid (severe) obesity due to excess calories; Z91.013 Allergy to seafood
CPT/HCPCS: 69436; J2250; J1100; J2405; J2704; J2001

== ENCOUNTER → 2022-06-16 | Outpatient (CLI) | payer BC ==
--- NOTE | 2022-06-16 12:54 | XR ---
EXAMINATION TYPE: XR chest 2V DATE OF EXAM: 06/16/2022 12:49 PM COMPARISON: Chest radiographs from 01/31/2020 TECHNIQUE: XR chest 2V Frontal and lateral views of the chest. CLINICAL INDICATION:Male, 62 years old with history of R05.9 Cough; FINDINGS: Lungs/Pleura: There is no evidence of pleural effusion, focal consolidation, or pneumothorax. Chroni c senescent parenchyma change. Pulmonary vascularity: Unremarkable. Heart/mediastinum: Cardiomediastinal silhouette is unremarkable. Musculoskeletal: Multiple level degenerative disc disease changes seen throughout the spine. No acute osseous abnormality. Other findings: None Lines/Tubes: [id number] projecting over the left hemithorax with distal tip at the cavoatrial junction. IMPRESSION: No acute cardiopulmonary disease/process.
== END | disposition home or self-care (01) ==
LOC: RADXRMAIN 12:37
PROVIDERS: ATTEND Family Medicine
DX: R05.9 Cough, unspecified (principal)
CPT/HCPCS: 71046

== ENCOUNTER → 2022-08-18 | Outpatient (CLI) | payer BC ==
[2022-08-18 08:40] LABS: African American GFR (CKD) >90 (>60 ml/min/1.73 sqM); Blood Urea Nitrogen 13 mg/dL (9-20); Non-African American GFR(CKD) >90 (>60 ml/min/1.73 sqM)
--- NOTE | 2022-08-18 09:38 | CT ---
EXAMINATION TYPE: CT brain w con DATE OF EXAM: 08/18/2022 COMPARISON: None HISTORY: Headaches CT DLP: 1139.4 mGycm Automated exposure control for dose reduction was used. CONTRAST: CT scan of the head is performed with IV Contrast, patient injected with 100 mL of Isovue 300. FINDINGS: There is no abnormal enhancing mass or midline shift identified. The ventricles and sulci are within normal limits in size. The globes are intact. Moderate-sized mucous retention cyst left maxillary s inus with mild mucosal thickening of the right maxillary sinus and ethmoid air cells. IMPRESSION: Negative contrast enhanced head CT exam. Chronic sinusitis.
== END | disposition home or self-care (01) ==
LOC: RADCTMAIN 07:28
PROVIDERS: ATTEND Family Medicine
DX: J32.9 Chronic sinusitis, unspecified (principal); R51.9 Headache, unspecified
CPT/HCPCS: 82565; 84520; 70460; 36415; Q9967

== ENCOUNTER 2022-08-24 12:59 | Emergency (ER) | payer BC ==
[2022-08-24 13:21] VITALS: PULSE 85; RESP 18
--- NOTE | 2022-08-24 14:08 | ED ---
Neck Injury/Pain HPI - General Chief Complaint: Neck Pain/Injury Stated Complaint: Neck pain Time Seen by Provider: 08/24/22 13:54 Mode of arrival: ambulatory Limitations: no limitations - History of Present Illness Initial Comments: Patient is a 62-year-old male presents to the emergency department with a chief complaint of head and neck pain. Patient reports pain at the base his left scalp near the back of his neck which radiates to the entire backside of his head for several months. He denies injury or falls. Patient states he has been evaluated several times for this complaint including by his primary care provider and marketing technology specialist. States the headache can be excruciating at times. He reports minimal pain with laying down pain is mostly with standing and sitting. He denies blurry vision, double vision, lightheadedness, dizziness, weakness, nausea, vomiting. States he has had normal CT scans of his brain and neck. Patient has lymphoma currently undergoing chemotherapy. - Related Data Home Medications Medication Instructions Recorded Confirmed metFORMIN HCL [Glucophage] 500 mg PO BID 06/20/19 03/26/22 Acyclovir 400 mg PO BID 01/27/20 03/26/22 Tamsulosin [Flomax] 0.4 mg PO DAILY 01/27/20 03/26/22 Allergies Allergy/AdvReac Type Severity Reaction Status Date / Time shellfish derived [Shellfish] Allergy Anaphylaxis Verified 03/26/22 12:58 Review of Systems ROS Statement: Those systems with pertinent positive or pertinent negative responses have been documented in the HPI. ROS Other: All systems not noted in ROS Statement are negative. 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 Past Psychological History: No Psychological Hx Reported Smoking Status: Never smoker Past Alcohol Use History: None Reported Past Drug Use History: None Reported - Past Family History Mother Family Medical History: Myocardial Infarction ([place]) Additional Family Medical History / Comment(s): Has some arrhythmia, unaware of what. Father History Unknown: Yes General Exam Limitations: no limitations General appearance: alert, in no apparent distress Head exam: Present: atraumatic, normocephalic, normal inspection Eye exam: Present: normal appearance, PERRL, EOMI. Absent: scleral icterus, conjunctival injection, periorbital swelling ENT exam: Present: normal oropharynx, TM's normal bilaterally Neck exam: Present: normal inspection, full ROM. Absent: tenderness, meningismus, lymphadenopathy Respiratory exam: Present: normal lung sounds bilaterally. Absent: respiratory distress, wheezes, rales, rhonchi, stridor Cardiovascular Exam: Present: regular rate, normal rhythm, normal heart sounds. Absent: systolic murmur, diastolic murmur, rubs, gallop, clicks Neurological exam: Present: alert, oriented X3, CN II-XII intact Expanded Cranial nerves: EOM's Intact: Normal, Nystagmus: Normal, Facial Sensation: Normal, Facial Palsy with Forehead Movement: Normal, Facial Palsy without Forehead Movement: Normal Cerebellar function: Finger to Nose: Normal, Heel to Jay: Normal Sensory exam: Upper Extremity Light Touch: Normal, Lower Extremity Pin Prick: Normal Motor strength exam: RUE: 5, LUE: 5, RLE: 5, LLE: 5 Psychiatric exam: Present: normal affect, normal mood Skin exam: Present: warm, dry, intact, normal color. Absent: rash Course Vital Signs 08/24/22 08/24/22 13:19 14:16 Temperature 97.3 F L 97.6 F Pulse Rate 85 85 Respiratory 18 18 Rate Blood Pressure 106/75 108/75 O2 Sat by Pulse 95 96 Oximetry Medical Decision Making - Medical Decision Making Was pt. sent in by a medical professional or institution (, PA, LEAD SOFTWARE TESTER, urgent care, hospital, or [facility]...) When possible be specific @ -No Did you speak to anyone other than the patient for history (EMS, parent, family, police, friend...)? What history was obtained from this source @ -No Did you review nursing and triage notes (agree or disagree)? Why? @ -I reviewed and agree with nursing and triage notes Were old charts reviewed (outside hosp., previous admission, EMS record, old EKG, old radiological studies, urgent care reports/EKG's, [facility] records)? Report findings @ -No old charts were reviewed Differential Diagnosis (chest pain, altered mental status, abdominal pain women, abdominal pain men, vaginal bleeding, weakness, fever, dyspnea, syncope, headache, dizziness, GI bleed, back pain, seizure, CVA, palpatations, mental health)? @ -Differential Headache: Migraine, tension, cluster, carbon monoxide, central venous thrombosis, pension karma temporal arteritis, acute closure glaucoma, intercranial hemorrhage, mastoiditis, sinusitis, head injury, this is not meant to be an all-inclusive list. EKG interpreted by me (3pts min.). @ -None X-rays interpreted by me (1pt min.). @ -None done CT interpreted by me (1pt min.). @ -None done U/S interpreted by me (1pt. min.). @ -None done What testing was considered but not performed or refused? (CT, X-rays, U/S, labs)? Why? @Considered CT imaging of the brain however patient declined states he has had recent normal CT scans What meds were considered but not given or refused? Why? @ -None Did you discuss the management of the patient with other professionals (professionals i.e. , PA, LEAD SOFTWARE TESTER, lab, RT, psych nurse, mental health social worker, manager oracle database, teacher, chief technology officer, lining caser)? Give summary @ -No Was smoking cessation discussed for >3mins.? @ -No Was critical care preformed (if so, how long)? @ -No Were there social determinants of health that impacted care today? How? (Homelessness, low income, unemployed, alcoholism, drug addiction, transportation, low edu. Level, literacy, decrease access to med. care, skilled nursing, rehab)? @ -No Was there de-escalation of care discussed even if they declined (Discuss DNR or withdrawal of care, Hospice)? DNR status @ -No What co-morbidities impacted this encounter? (DM, HTN, Smoking, COPD, CAD, Cancer, CVA, ARF, Chemo, Hep., AIDS, mental health diagnosis, sleep apnea, morbid obesity)? @ -None Was patient admitted / discharged? Hospital course, mention meds given and route, prescriptions, significant lab abnormalities, going to OR and other pertinent info. @ -Discharged. Patient has chronic headache no neurological deficit. He declined CT imaging has he has had negative CT recently. He decliens pain medication he is seeking answers. I recommended neurology evaluation possibly MRI patient discharged with referral in stable condition Undiagnosed new problem with uncertain prognosis? @ -No Drug Therapy requiring intensive monitoring for toxicity (Heparin, Nitro, Insulin, Cardizem)? @ -No Were any procedures done? @ -No Diagnosis/symptom? @ -headache Acute, or Chronic, or Acute on Chronic? @ -chronic Uncomplicated (without systemic symptoms) or Complicated (systemic symptoms)? @ -uncomplicated Side effects of treatment? @ -No Exacerbation, Progression, or Severe Exacerbation? @ -No Poses a threat to life or bodily function? How? (Chest pain, [place], [place], pneumonia, PE, COPD, DKA, ARF, appy, cholecystitis, CVA, Diverticulitis, Homicidal, Suicidal, threat to staff... and all critical care pts) @ -No Dr. Tobias is my attending Disposition Clinical Impression: Headache Disposition: HOME SELF-CARE Condition: Good Instructions (If sedation given, give patient instructions): Acute Headache (ED) Additional Instructions: Follow-up with neurology in 1-2 days. Return to the emergency department if you experience new, concerning, or worsening symptoms. Is patient prescribed a controlled substance at d/c from ED?: No Referrals: Pablo Chester DO [Primary Care Provider] - 1-2 days Sandra Sewell MD [Medical Doctor] - 1-2 days
[2022-08-24 14:19] VITALS: BP 108/75; TEMP 97.6
== END 2022-08-24 14:23 | disposition home or self-care (01) ==
LOC: EC 12:59
DX: R51.9 Headache, unspecified (principal); E11.9 Type 2 diabetes mellitus without complications; Z79.84 Long term (current) use of oral hypoglycemic drugs; Z91.013 Allergy to seafood
CPT/HCPCS: 99283

== ENCOUNTER 2022-09-19 05:58 | Emergency (ER) | payer BC ==
[2022-09-19 06:03] VITALS: BP 115/70; PULSE 98; RESP 18; TEMP 97.6
--- NOTE | 2022-09-19 06:17 | ED ---
Male Urogenital HPI - General Chief complaint: Urogenital Stated complaint: Trouble urinating Time Seen by Provider: 09/19/22 06:04 Source: patient, RN notes reviewed, old records reviewed Mode of arrival: ambulatory Limitations: no limitations - History of Present Illness Initial comments: 62-year-old male presents ambulatory with complaints of urinary retention since midnight. Patient states he's had this happen to him before after drinking beer. He states this time he only had 3 beers and happened again. His last episode of urinary retention was beginning of this year. He has seen a urologist in [facility] and told he has a slightly enlarged prostate but not concerning. He denies any nausea vomiting diarrhea or fevers. History of lymp kedar, diabetes. MD Complaint: other (Urinary retention) -: hour(s) (6) Radiation: none Severity scale (1-10): 8 Quality: other (full pressure) Consistency: constant Improves with: none Reports: denies other symptoms - Related Data Home Medications Medication Instructions Recorded Confirmed metFORMIN HCL [Glucophage] 500 mg PO BID 06/20/19 03/26/22 Acyclovir 400 mg PO BID 01/27/20 03/26/22 Tamsulosin [Flomax] 0.4 mg PO DAILY 01/27/20 03/26/22 Allergies Allergy/AdvReac Type Severity Reaction Status Date / Time shellfish derived [Shellfish] Allergy Anaphylaxis Verified 09/19/22 06:03 Review of Systems ROS Statement: Those systems with pertinent positive or pertinent negative responses have been documented in the HPI. ROS Other: All systems not noted in ROS Statement are negative. 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 Past Psychological History: No Psychological Hx Reported Smoking Status: Never smoker Past Alcohol Use History: Rare Past Drug Use History: None Reported - Past Family History Mother Family Medical History: Myocardial Infarction (ND) Additional Family Medical History / Comment(s): Has some arrhythmia, unaware of what. Father History Unknown: Yes General Exam Limitations: no limitations General appearance: alert, in no apparent distress Head exam: Present: atraumatic Eye exam: Present: normal appearance. Absent: scleral icterus, conjunctival injection, periorbital swelling Neck exam: Absent: meningismus Respiratory exam: Absent: respiratory distress, accessory muscle use Cardiovascular Exam: Present: regular rate GI/Abdominal exam: Present: soft, tenderness (Suprapubic, bladder distention). Absent: distended, guarding, rebound, rigid Extremities exam: Present: normal capillary refill. Absent: tenderness Neurological exam: Present: alert, oriented X3, normal gait Psychiatric exam: Present: normal affect, normal mood Skin exam: Present: warm, dry, normal color. Absent: cyanosis, diaphoretic, petechiae, pallor Course Vital Signs 09/19/22 06:00 Temperature 97.6 F Pulse Rate 98 Respiratory 18 Rate Blood Pressure 115/70 O2 Sat by Pulse 98 Oximetry - Reevaluation(s) Reevaluation #1: 09/19/22 06:57 Patient observed sleeping. Awoken and states the discomfort has resolved. Time: 06:57 Medical Decision Making - Medical Decision Making 62-year-old male presents ambulatory with complaints of urinary retention since midnight. Patient states he's had this happen to him before after drinking beer. He states this time he only had 3 beers and happened again. His last episode of urinary retention was beginning of this year. He has seen a urologist in [facility] and told he has a slightly enlarged prostate but not concerning. He denies any nausea vomiting diarrhea or fevers. History of lymphoma, diabetes. Bladder scan showed 640 mL's. Chaves catheter was placed, draining clear yellow urine. Urinalysis was sent and negative. Patient feeling much better. Requesting large Chaves bag rather than leg bag. Patient was given a referral to urology for follow-up this week. He is agreeable to this plan of care and discharged home with family. Case discussed with Dr. Zuniga Was pt. sent in by a medical professional or institution (, PA, PENCIL INSPECTOR, urgent care, hospital, or longterm...) When possible be specific @ -No Did you speak to anyone other than the patient for history (EMS, parent, family, police, friend...)? What history was obtained from this source @ -No Did you review nursing and triage notes (agree or disagree)? Why? @ -I reviewed and agree with nursing and triage notes Were old charts reviewed (outside hosp., previous admission, EMS record, old EKG, old radiological studies, urgent care reports/EKG's, longterm records)? Report findings @ -No old charts were reviewed Differential Diagnosis (chest pain, altered mental status, abdominal pain women, abdominal pain men, vaginal bleeding, weakness, fever, dyspnea, syncope, headache, dizziness, GI bleed, back pain, seizure, CVA, palpatations, mental health, musculoskeletal)? @ -Urinary retention, BPH, bladder calculi, cystitis this is not a inclusive this EKG interpreted by me (3pts min.). @ -n/a X-rays interpreted by me (1pt min.). @ -None done CT interpreted by me (1pt min.). @ -None done U/S interpreted by me (1pt. min.). @ -None done What testing was considered but not performed or refused? (CT, X-rays, U/S, labs)? Why? @ -Labs were considered however retention acute <6 hours, urinalysis negative for signs of infection, no hematuria, pain relieved with catheter placement What meds were considered but not given or refused? Why? @ -None Did you discuss the management of the patient with other professionals (professionals i.e. , PA, PENCIL INSPECTOR, lab, RT, psych nurse, social welfare administrator, spice miller hammer mill, teacher, deck officer, window caser)? Give summary @ -No Was smoking cessation discussed for >3mins.? @ -No Was critical care preformed (if so, how long)? @ -No Were there social determinants of health that impacted care today? How? (Homelessness, low income, unemployed, alcoholism, drug addiction, transportation, low edu. Level, literacy, decrease access to med. care, retirement, rehab)? @ -No Was there de-escalation of care discussed even if they declined (Discuss DNR or withdrawal of care, Hospice)? DNR status @ -No What co-morbidities impacted this encounter? (DM, HTN, Smoking, COPD, CAD, Cancer, CVA, ARF, Chemo, Hep., AIDS, mental health diagnosis, sleep apnea, morbid obesity)? @ -Lymphoma, diabetes Was patient admitted / discharged? Hospital course, mention meds given and route, prescriptions, significant lab abnormalities, going to OR and other pertinent info. @ -Discharged Undiagnosed new problem with uncertain prognosis? @ -No Drug Therapy requiring intensive monitoring for toxicity (Heparin, Nitro, Insulin, Cardizem)? @ -No Were any procedures done? @ -No Diagnosis/symptom? @ -Acute urinary retention Acute, or Chronic, or Acute on Chronic? @ -Acute Uncomplicated (without systemic symptoms) or Complicated (systemic symptoms)? @ -Uncomplicated Side effects of treatment? @ -No Exacerbation, Progression, or Severe Exacerbation? @ -No Poses a threat to life or bodily function? How? (Chest pain, [place], [place], pneumonia, PE, COPD, DKA, ARF, appy, cholecystitis, CVA, Diverticulitis, Homicidal, Suicidal, threat to staff... and all critical care pts) @ -No - Lab Data Lab Results 09/19/22 Range/Units 06:21 Urine Color Light Yellow Urine Appearance Clear (Clear) Urine pH 5.0 (5.0-8.0) Ur Specific [place] 1.004 (1.001-1.035) Urine Protein Negative (Negative) Urine Glucose (UA) Negative (Negative) Urine Ketones Negative (Negative) Urine Blood Negative (Negative) Urine Nitrite Negative (Negative) Urine Bilirubin Negative (Negative) Urine Urobilinogen <2.0 (<2.0) mg/dL Ur Leukocyte Esterase Negative (Negative) Disposition Clinical Impression: Acute urinary retention Disposition: HOME SELF-CARE Condition: Good Instructions (If sedation given, give patient instructions): Urinary Retention in Men (ED), Chaves Catheter Placement and Care (ED), How to Change a Catheter Drainage Bag (DC) Additional Instructions: Follow-up with urology this week. Return to the emergency room with any new or concerning symptoms including pain, no urine drainage into bag or fevers. Is patient prescribed a controlled substance at d/c from ED?: No Referrals: Pablo Chester DO [Primary Care Provider] - 1-2 days Sherman Moses MD [STAFF PHYSICIAN] - 1-2 days Time of Disposition: 07:05
[2022-09-19 07:01] LABS: Appearance,Urine Clear (Clear); Bilirubin,Urine Negative (Negative); Blood,Urine Negative (Negative); Color,Urine Light Yellow; Glucose,Urine (UA) Negative (Negative); Ketones,Urine Negative (Negative); Leukocyte Esterase,Urine Negative (Negative); Nitrite,Urine Negative (Negative); Protein,Urine Negative (Negative); Specific Gravity,Urine 1.004 (1.001-1.035); Urobilinogen,Urine <2.0 mg/dL (<2.0)
== END 2022-09-19 07:16 | disposition home or self-care (01) ==
LOC: EC 05:58
DX: R33.9 Retention of urine, unspecified (principal); E11.9 Type 2 diabetes mellitus without complications; Z91.013 Allergy to seafood; Z79.84 Long term (current) use of oral hypoglycemic drugs
CPT/HCPCS: 51702; 51798; 81003; 99283

== ENCOUNTER → 2022-09-22 | Outpatient (CLI) | payer BC ==
[2022-09-22 09:42] LABS: African American GFR (CKD) >90 (>60 ml/min/1.73 sqM); Blood Urea Nitrogen 8 mg/dL (9-20); Non-African American GFR(CKD) >90 (>60 ml/min/1.73 sqM)
--- NOTE | 2022-09-22 11:23 | CT ---
EXAMINATION TYPE: CT soft tissue neck w con DATE OF EXAM: 09/22/2022 COMPARISON: None HISTORY: 62-year-old male R22.1, Mass swelling, pain in neck TECHNIQUE: Contiguous axial scanning of the soft tissues of the neck performed with IV Contrast, alexei ent injected with 100 mL of Isovue 300. Delayed images through the kidneys were obtained. Coronal/sag ittal reconstructions performed. CT DLP: 648.80 mGycm Automated exposure control for dose reduction was used. FINDINGS: Left anterior chest wall injection port with subclavian access. Visualized intracranial structures, orbits and globes, and left mastoid air cells are clear. 2.7 cm mucosal retention cyst left maxillary sinus. There is obstruction of the right tubotympanic system with opacification of right mastoid air cells a nd right middle ear cavity. There is abnormal soft tissue involving the nasopharynx, though eccentric towards the left, extending up to 6.8 cm from side to side and bulging against the left medial pterygoid musculature and narrowi ng the left parapharyngeal space. Abnormal soft tissue mass extends down, nearly circumferentially along the cervical mucosal space to the left palatine tonsils which are abnormally enlarged measuring 2.8 x 2.6 cm. Mass is estimated to measure up to 8.2 cm craniocaudal, refer to sagittal image 49. Linwood the junction of the nasopharynx and oropharynx down to 4 mm. Suggestion of some eccentric mild right lingual tonsillar hypertrophy. Epiglottis is satisfactory. Glottic and subglottic structures as well as the tracheal column and visualized upper lungs appear cl ear. The thyroid gland is small as are the bilateral submandibular glands. Parotid glands appear satisfact ory. No cervical lymphadenopathy identified. Bones: Mild degenerative disc disease lower cervical spine with scattered facet arthropathy. IMPRESSION: 1. LARGE SOFT TISSUE MASS INVOLVING THE MUCOSAL SPACE OF THE NASOPHARYNX ECCENTRIC TOWARDS THE LEFT. THIS CONTINUES DOWN TO THE UPPER OROPHARYNX NARROWING THE JUNCTION OF THE NASOPHARYNX AND OROPHARYNX DOWN TO 4 MM. It extends nearly circumferentially around but in the upper oropharynx involves the lef t palatine tonsils unilaterally. Estimated to measure up to 8.2 cm craniocaudal and up to 6.8 cm wide . Correlate for lymphoma or squamous cell carcinoma. 2. Secondary obstruction of the right-sided tubotympanic system with mastoid air cell and middle ear cavity opacification. 3. No suspicious cervical lymphadenopathy.
== END | disposition home or self-care (01) ==
LOC: RADCTMAIN 08:13
PROVIDERS: ATTEND Otolaryngology
DX: H74.8X1 Other specified disorders of right middle ear and mastoid (principal); M54.2 Cervicalgia; J39.8 Other specified diseases of upper respiratory tract; R22.1 Localized swelling, mass and lump, neck; R51.9 Headache, unspecified
CPT/HCPCS: 82565; 84520; 70491; 36415; Q9967

== ENCOUNTER 2022-10-15 08:21 | Day surgery (SDC) | payer BC ==
--- NOTE | 2022-10-14 20:44 | HP ---
HISTORY AND PHYSICAL CHIEF COMPLAINT: Fluid in the right ear. HISTORY OF PRESENT ILLNESS: This patient is a 62-year-old male, who has previously undergone a left myringotomy with insertion of ventilation tube for a chronic left serous otitis media. The patient has a history of having lymphoma, which until recently was in remission. A recent CT scan has revealed that the lymphoma has returned, and there is known involvement at this time in the patient's nasopharynx and soft palate. The patient was seen in the office recently complaining of a plugged sensation in his right ear. At the time that the patient was seen in the office, clinical examination of the right ear revealed a right chronic serous otitis media. It was, therefore, recommended that the patient undergo a right myringotomy with insertion of a ventilation tube on IV sedation with MAC. PAST MEDICAL HISTORY: Reveals he has no allergies to medications. CURRENT MEDICATIONS: Include: 1. Metformin. 2. Tamsulosin. 3. Acyclovir. PREVIOUS SURGERIES: Include a left myringotomy with insertion of a ventilation tube and also instillation of a MediPort. REVIEW OF SYSTEMS: Reveals that the metabolic/endocrine system is positive for type 2 diabetes mellitus. Remainder of the review of systems is essentially unremarkable. PHYSICAL EXAMINATION: GENERAL: This patient is a very pleasant 62-year-old male, who is alert and cooperative. HEENT: The patient is normocephalic. Examination of the patient's left ear reveals a left ventilation tube in place, patent, and the left middle ear space is free of any fluid. Examination of the right ear reveals right tympanic membrane is dull with definite evidence of fluid in the right middle ear space. Pupils are equal, round, and reactive to light and accommodation. Extraocular movements are within normal limits. Intranasal examination reveals [id number] septal deviation with compensatory hypertrophy of the inferior turbinates and a moderate amount of clear mucus on the mucous membranes and draining down the posterior pharynx. Examination of oropharynx reveals that there is some significant swelling of the soft palate. This most likely represents a recurrence of the patient's lymphoma, which is also located in his nasopharynx. A recent biopsy of this mass confirms that this is in fact lymphoma. Palpation of the neck is negative for any neck masses or lymphadenopathy. Cranial nerves 2 through 12 and the remainder of the head and neck exam are unremarkable. CHEST/CARDIOVASCULAR: Both lung culp are clear to percussion and auscultation. The patient is in regular sinus rhythm. S1 and S2 are present without any murmurs. ABDOMEN: There is no evidence of any masses, megaly, or tenderness. The abdomen is soft. SKIN: Unremarkable. MUSCULOSKELETAL/NEUROLOGICAL: All within normal limits. RECTAL: Deferred at this time because the patient has this done on a regular basis at his family physician's office. Remainder of the physical exam is unremarkable. IMPRESSION: Chronic right serous otitis media. PLAN: The patient is scheduled to undergo a right myringotomy with insertion of a ventilation tube under IV sedation with MAC. Attention, RNs in the pre-surgical area: I have not ordered any pre-surgical prophylactic antibiotics for this patient. If the Pharmacy Department sends any pre- surgical prophylactic antibiotics to the pre-surgical area for this patient, please cancel that order and return the medications to the Pharmacy Department. Also, please make sure that the patient's account is credited appropriately. I have discussed the risks, benefits and alternative therapies for the above-mentioned procedure and for both sedation/analgesia as well as necessary blood product administration, if indicated, as they pertain to this patient. The patient has indicated his understanding and acceptance of the risks and procedures discussed. MMODL / IJN: [id number] /
[2022-10-15 09:18] LABS: Glucose,Whole Blood 143 mg/dL (70-110)
[2022-10-15] MEDS ORDERED: PROPOFOL 10 MG/ML 20 ML VIAL IV ONE (09:50)
[2022-10-15] MEDS ORDERED: LIDOCAINE 2% INJ 20 MG/ML (2 ML VIAL) ONE (09:50)
[2022-10-15] MEDS ORDERED: MIDAZOLAM 2 MG/2 ML VIAL ONE (09:50)
[2022-10-15] MEDS ORDERED: OFLOXACIN 0.3% OPHTH DROPS 5 ML BOTTLE RIGHT EAR ONE (10:09)
[2022-10-15 10:41] VITALS: TEMP 97.3
[2022-10-15 10:47] LABS: Glucose,Whole Blood 137 mg/dL (70-110)
[2022-10-15 11:15] VITALS: RESP 18
[2022-10-15 11:28] VITALS: BP 107/82; PULSE 71
--- NOTE | 2022-10-26 17:57 | OP ---
OPERATIVE REPORT DATE OF SERVICE : 10/15/2022 PREOPERATIVE DIAGNOSIS: Chronic right serous otitis media. POSTOPERATIVE DIAGNOSIS: Chronic right serous otitis media. ANESTHESIA: IV sedation with MAC. PROCEDURE PERFORMED: Right myringotomy with insertion of a plastic [place]-Bob[place] ventilation tube. COMPLICATIONS: None. ESTIMATED BLOOD LOSS: Zero. DESCRIPTION OF PROCEDURE: The patient was placed on the operating table in supine position and after uneventful IV sedation, satisfactory sedation was obtained. Next, the patient's right ear was draped in usual customary fashion. Following this and using a #3 aural speculum, the right external auditory canal was cleansed of all wax and debris. Next, an incision was made in the anterior-inferior quadrant of the right tympanic membrane. The right middle ear space was suctioned free of all fluid. Next, a Sheba-Bobbin ventilation tube was inserted in the previously made myringotomy incision without difficulty. At this point, the procedure was terminated. There were no intraoperative complications. The patient tolerated the procedure well and was returned to the recovery room in satisfactory condition. MMODL / IJN: [id number] /
== END 2022-10-15 11:50 | disposition home or self-care (01) ==
LOC: OR 08:21
PROVIDERS: ATTEND Otolaryngology
DX: H65.21 Chronic serous otitis media, right ear (principal); Z79.84 Long term (current) use of oral hypoglycemic drugs; Z79.899 Other long term (current) drug therapy; Z85.72 Personal history of non-Hodgkin lymphomas
CPT/HCPCS: 69436; J2250; J1100; J2405; J2704; J2001